=== PATIENT | male | born 1955 | race Hispanic/Latino ===

== ENCOUNTER 2021-11-28 19:28 | Emergency (ER) | payer OTHER ==
--- OUTSIDE RECORDS SUMMARY | 2021-11-28 19:33 | XMS REPORT | Continuity of Care Document ---
:1955 Author Organization [facility] t Address [address] [place] [address] Care Team Providers Name Role Phone Deirdre TANG, Sonya Primary Care Physician Brielle Hernandez Attending Clinician Unavailable KRISTOPHER GOODEN Attending Clinician Unavailable Ximena Bryan RN Attending Clinician Unavailable Moni Melchor Attending Clinician Harmeet SALDAÑA Attending Clinician Harmeet SALDAÑA Admitting Clinician Payers Payer Name Policy Type Policy Number Effective Date Expiration Date Octavio sawant SELF-PAY CI [id number] Problems Condition Condition Condition Status Onset Resolution Last Treating Co mments Source Name Details Category Date Date Treatment Clinician Date Sepsis due Sepsis due Disease Active U nivers to urinary to urinary 5-20 it y of tract tract 00:00: [place] infection infection 00 [facility] Branch Encounter Encounter Disease Active 2019-08 Met hodi for for 2-01 st radiothera radiothera 00:00: Ho spita py py 00 l COVID-19 COVID-19 Disease Active [facility] di virus virus 05-22 st detected detected 00:00: Hospit a 00 l Malignant Malignant Disease Active Met hodi neoplasm neoplasm 9 st of of 00:00: Hospita prostate prostate 00 l Prostate Prostate Disease Active [facility] di cancer cancer 4-15 st 00:00: Hospita 00 l Morbid Morbid Disease Active Univers obesity obesity 2-21 [place] of with body [place] index mass index 00 Me dical of 50 or of 50 or Branch higher higher Total knee Total knee Disease Active U nivers replacemen replacemen 2-20 it y of t status t status 00:00: [place] 00 Medical Branch Type 2 Type 2 Disease Active 2015-08 Univers diabetes diabetes 2-31 ity of mellitus mellitus 00:00: [place] without without 00 Medical complicati complicati Br anch on, on, without without long-term long-term current current use of use of insulin insulin Essential Essential Disease Active 2015-08 Uni vers (primary) (primary) 2 ity of hypertensi hypertensi [place] 00 Medical Branch Allergies, Adverse Reactions, Alerts Allergy Allergy Status Severity Reaction(s) Onset Inactive Treating Comm ents Source Name Type Date Date Clinician Insulin Propensi Active Other (See 2019-08 Met hodi Lispro ty to Comments) 2-15 st adverse 00:00: Hospita reaction 00 l s to drug NO KNOWN Drug Active Univers ALLERGIE Class ity of S [facility] Humalog Adverse Active inc glucose [facility] Social History Social Habit Start Date Stop Date Quantity Comments Source History [facility] Drinks [facility] History [facility] Exposure to Not sure University of SARS-CoV-2 [facility] (event) Branch Alcohol intake 2021-08-02 2021-08-02 Lifetime [facility] 00:00:00 00:00:00 non-drinker Hospital (finding) History [facility] 2020-09-22 2020-09-22 1 [facility] Frequency 00:00:00 00:00:00 Hospita l Tobacco use and 2020-04-12 2020-04-12 Smokeless tobacco [facility] exposure 00:00:00 00:00:00 non-user Hospital Sex Ass[birth year] At [birth year] Univers[facility] of 00:00:00 00:00:00 [facility] Smoking Status Start Date Stop Date Source Never smoked tobacco [facility] Medications Ordered Filled Start Stop Current Ordering Indication Dosage Frequency Signature Comments Components Source Medication Medication Date Date Medication? Clinician (SIG) Name Name leuprolide 2020-08- No [id number] 22.5mg Methodi (LUPRON) 10-03 st depot 22:30: 22:19 Hospita injection 00 :00 l 22.5 mg (RESTRICTED ) leuprolide 2020- No [id number] 22.5mg [facility] (LUPRON) 04-[address] depot 20:30: 20:26 Hospita injection 00 :00 l 22.5 mg (RESTRICTED ) metFORMIN Yes 500mg Take 500 Uni vers (GLUCOPHAGE 5-23 mg by ity of ) 500 mg 18:51: mouth 2 [place] tablet 54 (two) Medical times [place] daily with meals. oxybutynin Yes 5mg Take 5 mg Un levi chloride 5 5-23 by mouth ity o f mg tablet 18:51: daily. [address] tamsulosin Yes Take by Uni vers 0.4 mg 24 5-23 mouth ity of hr capsule 18:51: daily. [address] gabapentin Yes 300mg Take 300 Un levi 100 mg 5-23 mg by ity of capsule 18:51: mouth at [place] [address] bedtime. Medical Branch metFORMIN Yes 500mg Take 500 Uni vers (GLUCOPHAGE 5-23 mg by ity of ) 500 mg 18:51: mouth 2 [place] tablet 54 (two) Medical times [place] daily with meals. oxybutynin Yes 5mg Take 5 mg Un levi chloride 5 5-23 by mouth ity o f mg tablet 18:51: daily. [address] tamsulosin Yes Take by Uni vers 0.4 mg 24 5-23 mouth ity of hr capsule 18:51: daily. [address] gabapentin Yes 300mg Take 300 Un levi 100 mg 5-23 mg by ity of capsule 18:51: mouth at [place] [address] bedtime. Medical Branch furosemide 2020- No [id number] 20mg Take 1 Univers 20 mg 5-14 02-23 tablet by ity of tablet 00:00: 04:59 mouth [place] 00 :00 daily for Medical 30 days. Branch furosemide 2020- No [id number] 20mg Take 1 Univers 20 mg 5-14 02-23 tablet by ity of tablet 00:00: 04:59 mouth [place] 00 :00 daily for Medical 30 days. Branch levoFLOXaci 2020- No [id number] 750mg Take 1 Univers n 750 mg -14 02-05 tablet by ity o f tablet 00:00: 04:59 mouth [place] 00 :00 every 24 Medical (twenty-fo [place] ur) hours for 12 days. levoFLOXaci 2020- No [id number] 750mg Take 1 Univers n 750 mg -14 02-05 tablet by ity o f tablet 00:00: 04:59 mouth [place] 00 :00 every 24 Medical (twenty-fo [place] ur) hours for 12 days. lactulose No 30mL 30 mL, Unive rs (CEPHULAC) 01-13 Oral, ity of solution 30 16:30: 16:05 ONCE, 1 [place] mL 00 :00 dose, [facility] 01/13/21 at Branch 1130, Routine furosemide No 40mg 40 mg, IV U nivers (LASIX) 01-13 Push, ity of injection 16:15: 16:05 ONCE, 1 [place] 40 mg 00 :00 dose, [facility] 01/13/21 at Branch 1115, Routine docusate Yes 100mg 100 mg, Unive rs (COLACE) 01-13 Oral, ity of capsule 100 15:30: DAILY, [place] mg 00 First dose Medical on [facility] 01/13/21 at 1030, Until Discontinu ed, Routine levoFLOXaci Yes 750mg 750 mg, IV Univers n in D5W 01-13 Piggyback, ity o f (LEVAQUIN) 14:30: Q24H ABX, [place] 750 mg/150 00 First dose Med ical mL on [facility] Piggyback 01/13/21 at 750 mg 0930, Until Discontinu ed, 150 mL
R dank for Anti-Infec tive: Empiric Therapy for Suspected Infection< br>Empiric Therapy Site: Blood
D uration of therapy: 7 days tamsulosin Yes .4mg 0.4 mg, Univ ers (FLOMAX) 01-12 Oral, ity of capsule 0.4 14:00: DAILY, [place] mg 00 First dose Medical on Fri Branch 01/12/21 at 0900, Until Discontinu ed, Routine oxybutynin Yes 5mg 5 mg, Univer s chloride 01-12 Oral, ity of (DITROPAN) 14:00: DAILY, [place] tablet 5 mg 00 First dose Me dical on Fri Branch 01/12/21 at 0900, Until Discontinu ed, Routine enoxaparin Yes 40mg 40 mg, Unive rs (LOVENOX) 01-12 Subcutaneo ity of injection 14:00: [place], DAILY, [place] 40 mg 00 First dose Medical on Fri Branch 01/12/21 at 0900, Until Discontinu ed, Routine meropenem No 1g 1 g, IV Univ ers (MERREM) 1 01-12 05-22 Piggyback, it y of g in NaCl 05:30: 13:23 Q8H ABX, Cam as 0.9% (NS) 00 :29 First dose Medi arlette 100 mL on Fri MINI-BAG 01/12/21 at 0030, Until Discontinu ed, 100 mL
Rest ricted use approved by: ADC PROVIDER<b r>Reason for Anti-Infec tive: Documented Infection< br>Documen lynn Infection Site: Urine
D uration of Therapy: 7 days gabapentin Yes 300mg 300 mg, Uni vers (NEURONTIN) 01-12 Oral, QHS, it y of capsule 300 02:00: First dose [place] mg 00 on Jenny Medical 01/11/21 at Branch 2100, Until Discontinu ed, Routine Sliding Yes Subcutaneo Univ ers Scale 01-12 us, TID ity of Insulin - 02:00: MEALS+HS, Cam as Lispro 00 First dose Medical (HumaLOG) + on Fri Branch Fsbg 01/11/21 at Testing 2100, Until Discontinu ed, Routine NaCl 0.9% 2020- No 1000mL at 999 Uni vers (NS) bolus 01-12 05- mL/hr, ity of infusion 02:00: 02:24 1,000 mL, Cam as 1,000 mL 00 :00 [facility] [place] ONCE, 1 dose, [facility] 01/11/21 at 2100, STAT NaCl 0.9% 2020- No 1000mL at 125 Uni vers (NS) IV 01-12- mL/hr, IV ity of infusion 01:00: 15:27 Infusion, Cam as 1,000 mL 00 :57 CONTINUOUS Medic al , Starting Branch [facility] 01/11/21 at 2000, Until 01/13/21 at 1027, Routine ondansetron Yes 4mg 4 mg, Slow Univers (ZOFRAN 01-12 IV Push, ity of (PF)) 00:52: Q6HPRN, [place] injection 4 18 Starting Medi arlette mg [facility] 01/11/21 at 195, Until Discontinu ed, Routine, Nausea and Vomiting (N/V) acetaminoph Yes 650mg 650 mg, Un levi en 01-12 Oral, ity of (TYLENOL) 00:51: Q6HPRN, [place] tablet 650 37 Starting Medic al mg [facility] 01/11/21 at 195, Until Discontinu ed, Routine, Pain (scale 1-3), Temp > 38.5 C ibuprofen 2020- No 600mg 600 mg, Uni vers (IBU) 01-11 Oral, ity of tablet 600 23:45: 22:39 ONCE, 1 Cam as mg 00 :00 dose, [facility] Medical 01/11/21 at Branch 1845, MANUEL meropenem 2020- No 1g 1 g, IV Univ ers (MERREM) 1 01-11 Piggyback, it y of g in NaCl 22:15: 22:28 ONCE, 1 [place] 0.9% (NS) 00 :00 dose, [facility] Medic al 100 mL 01/11/21 at [place] MINI-BAG 1715, 100 mL
Rest ricted use approved by: ADC PROVIDER<b r>Reason for Anti-Infec tive: Documented Infection< br>Documen lynn Infection Site: Urine
D uration of Therapy: Other (see Comments) vancomycin 2020- No 1000mg 1,000 mg, Univers (VANCOCIN) 5-20 05-20 IV ity of 1,000 mg in 22:15: 23:45 Piggyback, [place] NaCl 0.9% 00 :00 ONCE, 1 Medical (NS) 250 mL dose, [facility] VIAL-MATE 01/11/21 at IV 1715, 250 piggyback mL
Reas on for Anti-Infec tive: Documented Infection< br>Documen lynn Infection Site: Urine
D uration of Therapy: Other (see Comments) NaCl 0.9% 2020- No 2267mL at 999 Uni vers (NS) bolus 5-20 05-20 mL/hr, ity of infusion 22:15: 21:27 2,267 mL, Cam as 2,267 mL 00 :00 IV Medical Infusion, Branch ONCE, 1 dose, [facility] 01/11/21 at 1715, STAT NaCl 0.9% 2020- No 1000mL at 999 Uni vers (NS) IV 5-20 05-20 mL/hr, ity of infusion 21:15: 21:25 [place]venou [place] 1,000 mL 00 :00 s, ONCE, 1 Medic al dose, [facility] Branch 01/11/21 at 1615, Routine acetaminoph 2020- No 1000mg 1,000 mg, Univers en - 05-20 Oral, ity of (TYLENOL) 21:15: 20:11 ONCE, 1 [place] tablet 00 :00 dose, [facility] Medical 1,000 mg 01/11/21 at [facility] h 1615, MANUEL tamsulosin Yes .4mg QD Take 0.4 Met hodi (FLOMAX) 5-[address] 0.4 mg 11:39: mouth Hospita capsule 11 nightly. l Takes with a snack gabapentin Yes 300mg QD Take 300 Me thodi (NEURONTIN) 5-[address] 300 mg 11:39: mouth Hospita capsule 11 every l morning. meloxicam Yes 15mg QD Take 15 mg Me thodi (MOBIC) 15 5-[address] mg tablet 11:39: daily. Hospit a 11 l metFORMIN 0 Yes 1000mg QD Take 1,000 Methodi (GLUCOPHAGE 5-[address] ) 1,000 mg 11:39: mouth Hospit a tablet 11 daily with l breakfast. insulin 0 Yes [id number] Inject Me thodi ASPART 5-[id number] (NovoLOG) 11:39: 3D skin 3 Hospit a 100 unit/mL 11 (three) l injection times a day before meals. Uses a sliding scale lisinopriL Yes 40mg Q24H Take 40 mg M ethodi (PRINIVIL) 5-[address] 40 mg 11:39: daily as Hospita tablet 11 needed l (patient states has never been given parameters . Takes with SBP greater than 130 and DBP 90 or higher). Depends on his BP in the morning omeprazole Yes 20mg Q24H Take 20 mg M ethodi (PriLOSEC) 5-[address] 20 MG 11:39: daily as Hospita capsule 11 needed. l aspirin 0 Yes 81mg Q24H Take 81 mg Meth lucrecia (ECOTRIN) 5-[address] 81 MG 11:39: daily as Hospita enteric 11 needed. l coated tablet insulin Yes 100 units Metho di GLARGINE 5-[address] (Lantus 11:39: us Once a Hospi ta Solostar 11 day for 90 l U-100 Insulin) 100 unit/mL injection (pen) atorvastati Yes 1 tablet Me thodi n (LIPITOR) 5-[address] 20 mg 11:39: Once a day Hospit a tablet 11 for 90 l gabapentin 0 Yes 1{capsu 1 capsule. Methodi (NEURONTIN) 5-20 le} st 300 mg 11:39: Hospita capsule 11 l lisinopriL 0 Yes 1 tablet Met hodi (PRINIVIL) 5-[address] 40 mg 11:39: Once a day Hospit a tablet 11 for 30 l meloxicam Yes 1 tablet Meth lucrecia (Mobic) 15 5-[address] mg tablet 11:39: Once a day Ho spita 11 for 30 l metFORMIN Yes 1 tablet Meth lucrecia (GLUCOPHAGE 5-[address] ) 1,000 mg 11:39: meal Hospita tablet 11 Orally l Once a day for 30 tamsulosin Yes 1{capsu 1 capsule. Methodi (FLOMAX) 5-20 le} st 0.4 mg 11:39: Hospita capsule 11 l tamsulosin 2020- No .4mg QD Take 1 Meth lucrecia (FLOMAX) 5-20 08-[address] 0.4 mg 00:00: 04:59 (0.4 mg Hospita capsule 00 :00 total) by l mouth daily for 90 days. finasteride 2019-08 No 5mg QD Take 1 Met hodi (Proscar) 5 2-24 03-25 tablet (5 st mg tablet 00:00: 04:59 mg total) Ho spita 00 :00 by mouth l daily for 90 days. oxybutynin 2019-08 No 5mg QD Take 1 Meth lucrecia XL 2-24 02-23 tablet (5 st (Ditropan 00:00: 05:59 mg total) Ho spita XL) 5 MG 24 00 :00 by mouth l hr tablet daily for 60 days. Firmagon Yes RECONSTITU Met hodi kit w 8-[address] diluent 00:00: VIAL WITH Hospi ta syringe 120 00 DILUENT l mg chemo AND injection PHYSICIAN IS TO INJECT 240 MG SUBCUTANEO USLY FOR 1 DOSE LOADING DOSE degarelix Yes [id number] 240mg Me thodi (FIRMAGON) 6-18 st chemo 20:15: Hospita injection 00 l 240 mg insulin Yes 25 units Method i ASPART 5-[address] (NovoLOG) 00:00: Subcutaneo Ho spita 100 unit/mL 00 us TID l (3 mL) with meals insulin pen for 90 days Insulin Insulin Yes [place] [address] Aspart Aspart 5-28 [place] sub q [facility] - FlexPen FlexPen 00:00: [facility] insulin Yes 25 units Method i lispro 2-[address] (HumaLOG 00:00: us TID for Hos shefali KwikPen 00 90 days l Insulin) 200 unit/mL (3 mL) insulin pen HYDROCHLORO No TAKE ONE U nivers THIAZIDE 6- 05-20 CAPSULE BY ity of 12.5 mg 00:00: 00:00 MOUTH ONCE Cam as capsule 00 :00 DAILY Medical Branch lisinopril- 2016-08 Yes [id number] 1{tbl} Take 1 Univers hydrochloro 2-29 tablet by ity of thiazide 00:00: mouth [place] 10-12.5 mg 00 daily. Medical per tablet Branch lisinopril- 2016-08 Yes [id number] 1{tbl} Take 1 Univers hydrochloro 2-29 tablet by ity of thiazide 00:00: mouth [place] 10-12.5 mg 00 daily. Medical per tablet Branch acetaminoph 2020- No 1{tbl} Take 1 U nivers en-codeine 3 05-20 tablet by ity of (TYLENOL-CO 00:00: 00:00 [place] DEINE #3) 00 :00 every 4 Medical 300-30 mg (four) Branch tablet hours as needed for Pain (scale 4-6) or Pain (scale 7-10). Immunizations Ordered Filled Immunization Date Status Comments [facility] e Immunization Name Name FLUZONE HIGH DOSE FLUZONE HIGH DOSE 2019-06-28 Completed [facility] - OVER 65 OVER 65 00:00:00 [facility] Vital Signs Vital Name Observation Time Observation Value Comments Source Systolic blood 2021-01-14 16:55:00 143 mm[Hg] Univer sity of pressure [facility] Diastolic blood 2021-01-14 16:55:00 77 mm[Hg] Unive rsity of pressure [facility] Heart rate 2021-01-14 16:55:00 95 /min [facility] Body temperature 2021-01-14 16:55:00 36.17 Mago [facility] 2021-01-14 16:55:00 20 /min [facility] Oxygen saturation in 2021-01-14 16:55:00 96 /min [facility] Arterial blood by [facility] Pulse oximetry Branch Body height 2021-01-12 01:15:00 170.2 cm [facility] Body weight 2021-01-11 20:00:00 108.863 kg [facility] BMI 2021-01-11 20:00:00 37.59 kg/m2 [facility] Procedures Procedure Date / Time Performing Clinician Source Performed PROSTATE SPECIFIC ANTIGEN 2021-07-26 20:41:00 [facility] [id number] 2021-04-12 17:28:00 [facility] PROSTATE SPECIFIC ANTIGEN 2021-04-04 15:29:00 [facility] POCT GLUCOSE (AUTOMATED) 2021-01-14 16:55:00 Rnoak Ga [facility] POCT GLUCOSE (AUTOMATED) 2021-01-14 12:35:00 Ronak Ga [facility] COMP. METABOLIC PANEL 2021-01-14 07:43:00 Ronak Ga [facility] ([id number]) [facility] CBC WITH DIFF 2021-01-14 07:43:00 Ronak Ga o f [facility] N-TERMINAL PRO-BNP 2021-01-14 07:43:00 Mnoi Lenz [facility] POCT GLUCOSE (AUTOMATED) 2021-01-14 01:41:00 Ronak Ga [facility] POCT GLUCOSE (AUTOMATED) 2021-01-13 21:54:00 Ronak Ga [facility] POCT GLUCOSE (AUTOMATED) 2021-01-13 16:42:00 Ronak Ga [facility] POCT GLUCOSE (AUTOMATED) 2021-01-13 13:09:00 Ronak Ga [facility] BLOOD CULTURE SCREEN 2021-01-13 09:49:00 Ronak Ga [facility] BLOOD CULTURE SCREEN 2021-01-13 09:48:00 Ronak Ga [facility] COMP. METABOLIC PANEL 2021-01-13 09:46:00 Ronak Ga [facility] ([id number]) [facility] CBC WITH DIFF 2021-01-13 09:46:00 Abdullah, Ronak [facility] POCT GLUCOSE (AUTOMATED) 2021-01-13 02:23:00 Ronak Ga [facility] POCT GLUCOSE (AUTOMATED) 2021-01-12 21:02:00 Ronak Ga [facility] POCT GLUCOSE (AUTOMATED) 2021-01-12 16:15:00 Ronak Ga [facility] POCT GLUCOSE (AUTOMATED) 2021-01-12 12:38:00 Ronak Ga [facility] CBC WITH DIFF 2021-01-12 08:33:[address] [facility] POCT GLUCOSE (AUTOMATED) 2021-01-12 02:28:00 Ronak Ga [facility] CT ABDOMEN PELVIS WO 2021-01-11 22:01:09 Moni Tavarez [facility] Branch HB ECG ROUTINE & RHYTHM 2021-01-11 20:28:37 Singer [facility] XR CHEST 1 VW 2021-01-11 20:21:38 Singer [facility] COVID-19 (ID NOW RAPID 2021-01-11 20:18:00 Singer Fahad [facility] TESTING) Medical Branch LAB ONLY COVID 2021-01-11 20:18:00 Singer [facility] BLOOD CULTURE SCREEN 2021-01-11 20:17:00 Fahad Johnson [facility] COMP. METABOLIC PANEL 2021-01-11 20:17:00 Fahad Johnson [facility] ([id number]) Medical Branch CBC WITH DIFF 2021-01-11 20:17:00 Singer [facility] URINALYSIS 2021-01-11 20:17:00 Singer [facility] URINE CULTURE 2021-01-11 20:17:00 Singer [facility] BLOOD CULTURE WORKUP 2021-01-11 20:17:00 Singer Fahad [facility] BLOOD CULTURE WORKUP 2021-01-11 20:17:00 Fahad Johnson [facility] GRAM NEGATIVE BLOOD 2021-01-11 20:17:00 [facility] PROBE-AEROBIC LACTIC ACID WHOLE BLOOD 2021-01-11 20:16:00 Fahad Johnson [facility] PROSTATE SPECIFIC ANTIGEN 2020-12-29 13:44:00 Kristopher Gooden [facility] Plan of Care Planned Activity Planned Date Details Comments Source Future Scheduled 2021-08-09 Hepatitis C screening [facility] Test 09:56:37 (procedure) [code = 729128700] Future Scheduled 2021-08-09 COLONOSCOPY SCREENING [facility] Test 09:56:37 [code = COLONOSCOPY SCREENING] Future Scheduled 2021-08-09 [facility]IN[facility] (#[facility] 09:56:37 [code = SHINGLES VACCINES (#1)] Future Scheduled 2021-08-09 65+ PNEUMOCOCCAL [facility] Test 09:56:37 VACCINE (1 of 1 - PPSV23) [code = 65+ PNEUMOCOCCAL VACCINE (1 of 1 - PPSV23)] Future Scheduled 2021-08-09 INFLUENZA VACCINE [facility] Hospital Test 09:56:37 [code = INFLUENZA VACCINE] Future Scheduled 2021-08-09 COVID-19 VACCINE (3 - [facility] Test 09:56:37 Booster for Moderna series) [code = COVID-19 VACCINE (3 - Booster for Moderna series)] Encounters Start End Encounter Admission Attending Care Care Encounter Source Date/Time Date/Time Type Type Clinicians Facility Department ID 2021-09-25 Outpatient IBNS IBNS [id number] Jaylan 12:21:50 [id number] Florian 2021-09-19 Outpatient Anson [facility] [id number] 13:27:53 Bri[place] [id number] [facility] 2021-09-19 Outpatient [place], [facility] [id number] 13:06:33 Bri[place] [id number] [facility] 2021-09-19 Outpatient [place], [facility] [id number] 12:49:33 Bri[place] [address] [facility] 2021-09-19 Outpatient David, STLMLC STLMLC [id number] 12:24:51 Bri[place] 30383 [facility] 2021-09-19 Outpatient David, STLMLC STLMLC [id number] 12:24:21 Brielle 71494 [facility] 2021-09-19 Outpatient David, STMARIOLALC STLC [id number] 11:23:38 Bri[place] 28130 [facility] 2021-09-19 Outpatient David, STLMLC STLMLC [id number] 11:11:16 Bri[place] [id number] [facility] 2021-09-19 Outpatient David, STLMLC STLC [id number] 11:09:25 Bri[place] 956[address] [facility] 2021-09-19 Outpatient David, STLMLC STLC [id number] 11:08:42 [place] [id number] [facility] 2021-09-19 Outpatient David, STLMLC STLC [id number] 11:08:07 [place] 74839 [facility] 2021-09-19 Outpatient David, STLMLC STLC [id number] 11:07:57 [place] [id number] [facility] 2021-09-19 Outpatient David, STLMLC STLC [id number] 11:07:34 Bri[place] 62961 [facility] 2021-09-19 Outpatient David, STLMLC STLC [id number] 11:06:06 [place] [id number] [facility] 2021-06-24 Emergency [facility] [id number] Univers 20:21:58 [facility] 2021-11-23 2021-11-23 ambulatory STLC [facility] [id number] [facility] 00[facility]00 [facility] 2021-11-15 2021-11-15 Outpatient SATKUNASIVA [facility] [id number] [place] 00:00:00 00:00:00 M, KRISTOPHER [address] 2021-10-22 2021-10-22 ambulatory STLMLC STLMLC [id number] [facility]00 [facility] 2021-10-16 2021-10-16 ambulatory STLMLC STLMLC [id number] [facility]00 [facility] 2021-10-16 2021-10-16 ambulatory STLMLC STLMLC [id number] [facility]00 [facility] 2021-10-16 2021-10-16 ambulatory STLMLC STLMLC [id number] [facility]00 [facility] 2021-08-02 2021-08-02 Office Satkunasiva 1.2.840.1 [id number] [facility]i 15:41:36 16:23:04 Visit m, Kristopher [id number] 3.430.2.7 Hospit a .3.250199 l .8 2021-08-02 2021-08-02 Travel 1.2.840.1 [id number] [facility] 00:00:00 00:00:[id number] 3.430.2.7 0.2.7.3.698 Ho spita .3.101464 084.8 l .8 2021-07-16 2021-07-16 ambulatory STLMLC STLMLC [id number] [facility]00 [facility] 2021-07-16 2021-07-16 Telephone Satkunasiva 1.2.840.1 [id number] [facility]i 00:00:00 00:00:00 m, Kristopher 75103.1.[address] 3.430.2.7 Hospit a .3.246168 l .8 2021-04-23 2021-04-23 Outpatient [facility] [id number] [facility] 00:[facility]:00 [facility] ent [facility] 2021-04-12 2021-04-19 Office Satkunasiva 1.2.840.1 [id number] Methodi 11:38:53 15:20:05 Visit m, Kristopher [id number] 3.430.2.7 Hospit a .3.293375 l .8 2021-04-13 2021-04-19 Clinical Satkunasiva 1.2.840.1 [id number] [facility]i 13:12:48 12:05:53 Support m, Kristopher 55922.1.[address] 3.430.2.7 Hospit a .3.742304 l .8 2021-04-19 2021-04-19 Outpatient [facility] [id number] [facility] 00:[facility]:00 00:00:00 [facility] ent [facility] 2021-04-18 2021-04-18 Outpatient [facility] [id number] [facility] 00:[facility]:00 [facility] ent [facility] 2021-04-12 2021-04-12 Travel 1.2.840.1 [id number] [id number] Methodi 00:00:00 00:00:[address] 3.430.2.7 0.2.7.3.698 Ho spita .3.016607 084.8 l .8 2021-01-11 2021-01-18 Office [facility] 1.2.840.1 [id number] Methodi 11:00:54 13:58:17 Visit m, Kristopher 09528.1.[address] 3.430.2.7 Hospit a .3.636777 l .8 2021-01-16 2021-01-16 Transition Feliberto Bryan 1.2.840.114 [id number] [facility] 00:00:00 00:00:00 of Vanessa Keenan 350.1.13.10 [place] [id number] [facility] [address] 2021-01-16 2021-01-16 Outpatient [facility] [id number] [facility] 2021-01-15 2021-01-15 Outpatient [facility] [id number] [facility] 2021-01-11 2021-01-14 [facility] Moni Tavarez [facility] 1.2.840.11 [id number] [facility] 14:58:00 12:45:00 Encounter Ronak [place] 350.1.13.10 [place] [id number] [facility] [address] 2021-01-12 2021-01-12 Telephone [facility] 1.2.840.1 [id number] Methodi 00:00:00 00:00:00 m, Kristopher 76389.1.[address] 3.430.2.7 Hospit a .3.792983 l .8 2021-01-11 2021-01-11 Travel 1.2.840.1 1.2.628.461 [id number] Methodi 00:00:00 00:00:[address] 3.430.2.7 0.2.7.3.698 Ho spita .3.536352 084.8 l .8 2021-01-05 2021-01-05 Telephone [facility] 1.2.840.1 [id number] Methodi 00:00:00 00:00:00 m, Kristopher 13430.1.[address] 3.430.2.7 Hospit a .3.674092 l .8 2021-01-04 2021-01-04 Office [facility] 1.2.840.1 [id number] Methodi 13:45:00 14:00:00 Visit m, Kristopher 09405.1.[address] 3.430.2.7 Hospit a .3.106170 l .8 2020-12-22 2020-12-22 Telephone Jonatan 1.2.840.1 [id number] Methodi 00:00:00 00:00:00 m, Kristopher 21366.1.[address] 3.430.2.7 Hospit a .3.049571 l .8 2020-11-01 2020-11-01 Outpatient [facility] [id number] [facility] 2020-09-18 2020-09-18 Outpatient [facility] [id number] [facility] 2020-08-07 2020-08-07 Outpatient [facility] [id number] [facility] 2020-05-29 2020-05-29 Outpatient [facility] [id number] [facility] 2020-03-29 2020-03-29 [facility] [id number] 16:24:00 16:24:00 t [facility] Medicine l Medicine Outpati ent Clinics 2020-03-06 2020-03-06 [facility] [id number] 14:40:00 14:40:00 t [facility] Medicine l Medicine Outpati ent Clinics 2020-02-28 2020-02-28 [facility] [id number] 14:30:00 14:30:00 t Specialty/U [facility] - Specialty rology [facility] a /Urology Clinic l Clinic Outpati ent Clinics 2020-01-20 2020-01-20 [facility] [id number] 16:20:00 16:20:00 t [facility] Medicine l Medicine Outpati ent Clinics 2019-11-23 2019-11-23 [facility] [id number] 10:00:00 10:00:00 t Specialty/[facility] [place] [facility] - Specialty rology [facility] /Urology Clinic l Clinic Outpati ent Clinics 2019-11-19 2019-11-19 [facility] [id number] 13:22:00 13:22:00 t Specialty/[facility] [employer] [facility] - Specialty rology [facility] /Urology Clinic l Clinic Outpati ent Clinics 2019-11-16 2019-11-16 [facility] [id number] 14:15:00 14:15:00 t Specialty/[facility] [employer] - Specialty rology [facility] /Urology Clinic l Clinic Outpati ent Clinics 2019-11-08 2019-11-08 [facility] [id number] 16:45:00 16:45:00 t Specialty/U [place] kes - Specialty rology Mem[facility] a /Urology Clinic l Clinic Outpati ent Clinics 2019-10-27 2019-10-27 [facility] [id number] 16:17:00 16:17:00 t Specialty/[facility] [place] [facility] - Specialty rology [facility] /Urology Clinic l Clinic Outpati ent Clinics 2019-10-26 2019-10-26 [facility] [id number] 11:35:00 11:35:00 t Specialty/[facility] [employer] - Specialty rology [facility] /Urology Clinic l Clinic Outpati ent Clinics 2019-10-25 2019-10-25 [facility] [id number] 16:40:00 16:40:00 t [facility] Medicine Outpati ent Clinics 2019-10-19 2019-10-19 [facility] [id number] 14:30:00 14:30:00 t Specialty/[facility] [place] - Specialty rology Mem[facility] a /Urology Clinic l Clinic Outpati ent Clinics 2019-10-13 2019-10-13 [facility] [id number] 17:56:00 17:56:00 t [facility] 2019-10-11 2019-10-11 Outpatient Lorena Coon [id number] 09:00:00 09:00:00 [facility] 2019-06-28 2019-06-28 Outpatient Lorena Coon [id number] 15:20:00 15:20:00 [facility] Results Test Description Test Time Test Comments Results Result Comments Source Prostate specific antigen 2021-07-27 15:10:00 Test Item Value Reference Range Interpretation Comme nts PSA (test code = <0.1 0.0-4.0 Denys ECLIA methodology.According 2857-1) to the [place] [employer], Se rum PSA shoulddecrease and remain at undetectable le vels after radicalprostate ctomy. The AUA defines biochem ical recurrence as an initialPSA v alue 0.2 ng/mL or greater followe d by a subsequent confirmatoryPSA value 0.2 ng/mL or greater.Valu es obtained with different assay methods or kits cannot be usedi nterchangeably. Results cannot be interpreted as absolute eviden ceof the presence or absence of m alignant disease. JOSE (test code = Performed at: ) [facility] [id number] Director: Jorge Irwin MD, Phone: [phone] [facility] BLADDER SCAN/[id number] 17:28:00 Test Item Value Reference Range Interpretation Comments PVR volume (test code = 5766) [facility] GLUCOSE (AUTOMATED)2021-01-14 17:21:37 Test Item Value Reference Range Interpretation Comments POCT GLU (test code = 8695483614) 168 mg/dL 70-110 H Lab Interpretation (test code = Abnormal 36215-7) [id number] 15:30:48 Test Item Value Reference Range Interpretation Comments NT-proBNP (test code 1120 pg/mL See_Comment H [Autom ated = 6642307648) message] The system which generated this result transmitted reference range : <=125. The reference range was not used to interpret this result as normal/abnormal . JOSE (test code = JOSE) Biotin has been reported to cause a negative bias, interpret results relative to patient's use of biotin. Lab Interpretation Abnormal (test code = 44227-5) [facility] [id number] 13:47:13 Test Item Value Reference Range Interpretation Comments Blood Culture Escherichia coli Hydro mor phologically Workup (test consistent with code = 600-7) organism above For susceptibility results, refer to culture # - [id number] Gram stain Isolated from Gram negative bacilli (test code = aerobic/anaerobic from anaer obic and 664-3) bottles Gram aerobic bottles . negative bacilli [facility]2021-01-14 13:02:24 Test Item Value Reference Range Interpretation Comments POCT GLU (test code = 1102134176) 140 mg/dL 70-110 H Lab Interpretation (test code = Abnormal 29754-1) [facility] [id number] 08:58:31 Test Item Value Reference Range Interpretation Comments WBC (test code = See_Comment [Automated 6690-2) message] The sy stem which generated this result transmitted reference range : 4.20 - 10.70 10*3/?L. The reference range was not used to interpret this result as normal/abnormal . RBC (test code = See_Comment L [Automated 789-8) message] The sy stem which generated this result transmitted reference range : 4.26 - 5.52 10*6/?L. The reference range was not used to interpret this result as normal/abnormal . HGB (test code = 10.4 g/dL 12.2-16.4 L 718-7) HCT (test code = 30.8 % 38.4-49.3 L 4544-3) MCV (test code = 89.5 fL 81.7-95.6 787-2) MCH (test code = 30.2 pg 26.1-32.7 785-6) MCHC (test code = 33.8 g/dL 31.2-35.0 786-4) RDW-SD (test code = 45.7 fL 38.5-51.6 92764-3) RDW-CV (test code = 14.3 % 12.1-15.4 788-0) PLT (test code = See_Comment L [Automated 777-3) message] The sy stem which generated this result transmitted reference range : 150 - 328 10*3/ ?L. The reference r sarina was not used to interpret this result as normal/abnormal . MPV (test code = 9.8 fL 9.8-13.0 04158-7) NRBC/100 WBC (test See_Comment [Automat ed code = 9620806496) message] The system which generated this result transmitted reference range : 0.0 - 10.0 /100 WBCs. The refer ence range was not u sed to interpret th is result as normal/abnormal . NRBC x10^3 (test code <0.01 See_Comment [Auto mated = 6157952229) message] The s ystem which generated this result transmitted reference range : 10*3/?L. The reference range was not used to interpret this result as normal/abnormal . GRAN MAT (NEUT) % 77.3 % (test code = 770-8) IMM GRAN % (test code 1.40 % = 0041271789) LYMPH % (test code = 8.4 % 736-9) MONO % (test code = 9.6 % 5905-5) EOS % (test code = 2.5 % 713-8) BASO % (test code = 0.8 % 706-2) GRAN MAT x10^3(ANC) 6.99 10*3/uL 1.99-6.95 H (test code = 4694719051) IMM GRAN x10^3 (test 0.13 10*3/uL 0.00-0.06 H code = 7805067188) LYMPH x10^3 (test code 0.76 10*3/uL 1.09-3.23 L = 731-0) MONO x10^3 (test code 0.87 10*3/uL 0.36-1.02 = 742-7) EOS x10^3 (test code = 0.23 10*3/uL 0.06-0.53 711-2) BASO x10^3 (test code 0.07 10*3/uL 0.01-0.09 = 704-7) POLYCHROMASIA (test 2+ See_Comment [Automa lynn code = 69173-4) message] The system which generated this result transmitted reference range : 2+. The referen ce range was not u sed to interpret th is result as normal/abnormal . ROSSYCHRISTINE (test code = Present See_Comment A [Auto mated 7797-4) message] The sy stem which generated this result transmitted reference range : (none). The reference range was not used to interpret this result as normal/abnormal . BANDS (test code = Increased A 7494014693) DOHLE BODIES (test Present A code = 7792-5) Lab Interpretation Abnormal (test code = 72073-0) [facility]. METABOLIC PANEL (75938)2021-01-14 08:28:49 Test Item Value Reference Range Interpretation Comments NA (test code = 137 mmol/L 135-145 3123970684) K (test code = 3.9 mmol/L 3.5-5.0 4811680971) CL (test code = 107 mmol/L 98-108 5134824147) CO2 TOTAL (test code = 23 mmol/L 23-31 0756303455) AGAP (test code = 2-16 7459717633) BUN (test code = 19 mg/dL 7-23 8619463506) GLUCOSE (test code = 131 mg/dL 70-110 H 7500777151) CREATININE (test code = 1.04 mg/dL 0.60-1.25 2490547073) TOTAL BILI (test code = 0.8 mg/dL 0.1-1.3 8294631278) CALCIUM (test code = 8.8 mg/dL 8.6-10.6 2696778465) T PROTEIN (test code = 5.8 g/dL 6.3-8.2 L 9395014793) ALBUMIN (test code = 2.9 g/dL 3.5-5.0 L 7214922896) ALK PHOS (test code = 86 U/L 34-122 5908063776) ALTv (test code = 40 U/L 5-50 1742-6) AST(SGOT) (test code = 57 U/L 13-40 H 8740480027) eGFR (test code = mL/min/1.73m2 8565695647) JOSE (test code = JOSE) Association of Glomerular Filtration Rate (GFR) and Staging of Kidney Disease* + --+ --+ ------+| GFR (mL/min/1.73 m2) ?| With Kidney Damage ?| ?Without Kidney Damage+ --------+ --------+ +| ?>90 ?| ?Stage one ?| ? Normal ?+ ---+ ---+ -------+| ?60-89 ?| ?Stage two ?| ? Decreased GFR ? + --+ --+ ------+| ?30-59 ?| ?Stage three ?| ? Stage three ? + --+ --+ ------+| ?15-29 ?| ?Stage four ? | ? Stage four ?+ ---+ ---+ -------+| ?<15 (or dialysis) ? ?| ?Stage five ? | ? Stage five ?+ ---+ ---+ -------+ *Each stage assumes the associated GFR level has been in effect for at least three months. ?Stages 1 to 5, with or without kidney disease, indicate chronic kidney disease. Notes: Determination of stages one and two (with eGFR >59mL/min/1.73 m2) requires estimation of kidney damage for at least three months as defined by structural or functional abnormalities of the kidney, manifested by either:Pathological abnormalities or Markers of kidney damage (including abnormalities in the composition of the blood or urine or abnormalities in imaging tests). Lab Interpretation Abnormal (test code = 36543-3) [facility] GLUCOSE (AUTOMATED)2021-01-14 01:46:47 Test Item Value Reference Range Interpretation Comments POCT GLU (test code = 5737370590) 202 mg/dL 70-110 H Lab Interpretation (test code = Abnormal 06839-2) [facility] GLUCOSE (AUTOMATED)2021-01-13 22:09:58 Test Item Value Reference Range Interpretation Comments POCT GLU (test code = 8367658744) 149 mg/dL 70-110 H Lab Interpretation (test code = Abnormal 82994-7) [facility] GLUCOSE (AUTOMATED)2021-01-13 18:37:46 Test Item Value Reference Range Interpretation Comments POCT GLU (test code = 4891624104) 208 mg/dL 70-110 H Lab Interpretation (test code = Abnormal 23127-7) [facility] GLUCOSE (AUTOMATED)2021-01-13 13:56:35 Test Item Value Reference Range Interpretation Comments POCT GLU (test code = 0998514082) 115 mg/dL 70-110 H Lab Interpretation (test code = Abnormal 14013-7) [facility] WITH [id number] 13:45:25 Test Item Value Reference Range Interpretation Comments WBC (test code = See_Comment H [Automated 6690-2) message] The sy stem which generated this result transmitted reference range : 4.20 - 10.70 10*3/?L. The reference range was not used to interpret this result as normal/abnormal . RBC (test code = See_Comment L [Automated 789-8) message] The sy stem which generated this result transmitted reference range : 4.26 - 5.52 10*6/?L. The reference range was not used to interpret this result as normal/abnormal . HGB (test code = 9.9 g/dL 12.2-16.4 L 718-7) HCT (test code = 29.8 % 38.4-49.3 L 4544-3) MCV (test code = 91.7 fL 81.7-95.6 787-2) MCH (test code = 30.5 pg 26.1-32.7 785-6) MCHC (test code = 33.2 g/dL 31.2-35.0 786-4) RDW-SD (test code = 48.8 fL 38.5-51.6 89356-5) RDW-CV (test code = 14.6 % 12.1-15.4 788-0) PLT (test code = See_Comment L [Automated 777-3) message] The sy stem which generated this result transmitted reference range : 150 - 328 10*3/ ?L. The reference r sarina was not used to interpret this result as normal/abnormal . MPV (test code = 10.6 fL 9.8-13.0 75005-7) NRBC/100 WBC (test See_Comment [Automat ed code = 1164252350) message] The system which generated this result transmitted reference range : 0.0 - 10.0 /100 WBCs. The refer ence range was not u sed to interpret th is result as normal/abnormal . NRBC x10^3 (test code <0.01 See_Comment [Auto mated = 6590851942) message] The s ystem which generated this result transmitted reference range : 10*3/?L. The reference range was not used to interpret this result as normal/abnormal . GRAN MAT (NEUT) % 80.1 % (test code = 770-8) IMM GRAN % (test code 6.70 % = 7437790342) LYMPH % (test code = 5.6 % 736-9) MONO % (test code = 6.1 % 5905-5) EOS % (test code = 1.0 % 713-8) BASO % (test code = 0.5 % 706-2) GRAN MAT x10^3(ANC) 9.23 10*3/uL 1.99-6.95 H (test code = 7965960541) IMM GRAN x10^3 (test 0.77 10*3/uL 0.00-0.06 H code = 9759972413) LYMPH x10^3 (test code 0.65 10*3/uL 1.09-3.23 L = 731-0) MONO x10^3 (test code 0.70 10*3/uL 0.36-1.02 = 742-7) EOS x10^3 (test code = 0.11 10*3/uL 0.06-0.53 711-2) BASO x10^3 (test code 0.06 10*3/uL 0.01-0.09 = 704-7) BANDS (test code = Increased A 4813597143) Lab Interpretation Abnormal (test code = 64699-9) [facility]. METABOLIC PANEL (26469)2021-01-13 12:44:36 Test Item Value Reference Range Interpretation Comments NA (test code = 138 mmol/L 135-145 6652258763) K (test code = 4.0 mmol/L 3.5-5.0 3166868160) CL (test code = 111 mmol/L 98-108 H 1631843759) CO2 TOTAL (test code = 22 mmol/L 23-31 L 2837755708) AGAP (test code = 2-16 2206611823) BUN (test code = 20 mg/dL 7-23 3022943126) GLUCOSE (test code = 119 mg/dL 70-110 H 2200907260) CREATININE (test code = 1.04 mg/dL 0.60-1.25 5814681609) TOTAL BILI (test code = 0.8 mg/dL 0.1-1.6 8349061401) CALCIUM (test code = 8.3 mg/dL 8.6-10.6 L 1678365548) T PROTEIN (test code = 5.4 g/dL 6.3-8.2 L 6609615782) ALBUMIN (test code = 2.7 g/dL 3.5-5.0 L 3850790745) ALK PHOS (test code = 83 U/L 34-122 4831488411) ALTv (test code = 42 U/L 5-50 1742-6) AST(SGOT) (test code = 67 U/L 13-40 H 9536231343) eGFR (test code = mL/min/1.73m2 3502404113) JOSE (test code = JOSE) Association of Glomerular Filtration Rate (GFR) and Staging of Kidney Disease* + --+ --+ ------+| GFR (mL/min/1.73 m2) ?| With Kidney Damage ?| ?Without Kidney Damage+ --------+ --------+ +| ?>90 ?| ?Stage one ?| ? Normal ?+ ---+ ---+ -------+| ?60-89 ?| ?Stage two ?| ? Decreased GFR ? + --+ --+ ------+| ?30-59 ?| ?Stage three ?| ? Stage three ? + --+ --+ ------+| ?15-29 ?| ?Stage four ? | ? Stage four ?+ ---+ ---+ -------+| ?<15 (or dialysis) ? ?| ?Stage five ? | ? Stage five ?+ ---+ ---+ -------+ *Each stage assumes the associated GFR level has been in effect for at least three months. ?Stages 1 to 5, with or without kidney disease, indicate chronic kidney disease. Notes: Determination of stages one and two (with eGFR >59mL/min/1.73 m2) requires estimation of kidney damage for at least three months as defined by structural or functional abnormalities of the kidney, manifested by either:Pathological abnormalities or Markers of kidney damage (including abnormalities in the composition of the blood or urine or abnormalities in imaging tests). Lab Interpretation Abnormal (test code = 13285-0) [facility] 02:26:24 Test Item Value Reference Range Interpretation Comments POCT GLU (test code = 8204991950) 141 mg/dL 70-110 H Lab Interpretation (test code = Abnormal 46236-1) [facility] COVID [id number] 23:29:58COVID DMT InterpretationInterpretation/Recommendations: Molecular NAAT Tests for Active Infection with the SARS-CoV-2 Virus: The patient has currently tested negative for the SARS-CoV-2 virus that causes COVID-19 illness. This most likely indicates that the patient does not have an active infection with the SARS-CoV-2 virus. However, infection is not completely ruled out as the false negative rate for molecular NAAT testing using a nasopharyngeal sample can be up to 30%, mostly dependent on the timing of sample collection in relation to illness onset and any deficiencies in sampling techniques. If the patient has symptoms concerning for COVID-19 illness, a repeat NAAT test (PCR, Rapid ID Now, etc.) should be performed, at which time the SARS-CoV-2 virus - if present - may have reached a detectable viral load (usually peaking by the end of the first week of symptoms). Tests for IgM and/or IgGAntibodies to the SARS-CoV-2 Virus: If the patient develops COVID-19 illness in the future, testingfor IgM and IgG antibodies approximately 3 weeks after illness onset will likely indicate if the patient has produced antibodies to the SARS-CoV-2 virus. However, some patients may take longer to develop detectable antibodies, while some patients who were infected with SARS-CoV-2 may never develop antibodies. While antibodies to SARS-CoV-2 may provide some degree of immunity, at this time the strength and duration of the antibody response is unknown. ? ? Interpretation Result Comments:These interpretation comments are basedupon all COVID-19 testing the patient has had at [facility], including molecular NAAT testing (more commonly known as PCR testing and Rapid ID Now testing) and antibody testing. It does not take into accountany testing that a patient has had outside of the [facility] medical record. [facility] LABORATORY SERVICESCOVID [id number]-0 Rapid ID NOW (no units) ? ? Date ? Value ? 01/11/2021 ? Not Detected ? [facility]12 21:11:00 Test Item Value Reference Range Interpretation Comments POCT GLU (test code = 2769856262) 165 mg/dL 70-110 H Lab Interpretation (test code = Abnormal 23825-7) [facility] [id number] 20:29:44 Test Item Value Reference Range Interpretation Comments Blood Culture-Aerobic Culture positive. No growth AA P revious (test code = 77920-7) See Blood prelim inary Culture Workup verified resu lt for additional was Culture I n information. Progress on 01/11/2021 at 02 CDT Blood Culture positive. No growth AA Previous Culture-Anaerobic See Blood preliminar y (test code = 40712-5) Culture Workup veri fied result for additional was Culture I n information. Progress on 01/11/2021 at 02 CDT Lab Interpretation Abnormal (test code = 63867-9) [facility] [id number] 20:29:39 Test Item Value Reference Range Interpretation Comments Blood Culture-Aerobic Culture positive. No growth AA P revious (test code = 00290-1) See Blood prelim inary Culture Workup verified resu lt for additional was Culture I n information. Progress on 01/11/2021 at 02 CDT Blood Culture positive. No growth AA Previous Culture-Anaerobic See Blood preliminar y (test code = 74858-2) Culture Workup veri fied result for additional was Culture I n information. Progress on 01/11/2021 at 02 CDT Lab Interpretation Abnormal (test code = 88784-2) [facility] DNA [id number] 18:44:06 Test Item Value Reference Range Interpretation Comments Escherichia coli (test Positive Negative, See A code = 73394-5) Comment/Narrative CTX-M (test code = Positive Negative, See A 55340-1) Comment/Narrative JOSE (test code = JOSE) Gram-negative bacteria with extended-spectrum beta-lactamase (ESBL) production detected by DNA probe. Preferred therapy is ertapenem. ?Infectious Diseases consultationis recommended. Please contact the Antimicrobial Stewardship Program with questions.ASP Pager: ?[phone] __ See blood culture result for additional information. ?Testing included eight identification and six resistance marker targets. Lab Interpretation Abnormal (test code = 38348-0) [facility]2021-01-12 16:41:09 Test Item Value Reference Range Interpretation Comments POCT GLU (test code = 7697782378) 172 mg/dL 70-110 H Lab Interpretation (test code = Abnormal 26259-8) [facility] with [id number] 14:49:35 Test Item Value Reference Range Interpretation Comments WBC (test code = See_Comment H [Automated 3390-2) message] The system which generated this result transmitted reference range : 4.20 - 10.70 10*3/?L. The reference range was not used to interpret this result as normal/abnormal . RBC (test code = See_Comment L [Automated 842-8) message] The system which generated this result transmitted reference range : 4.26 - 5.52 10*6/?L. The reference range was not used to interpret this result as normal/abnormal . HGB (test code = 10.0 g/dL 12.2-16.4 L 718-7) HCT (test code = 29.7 % 38.4-49.3 L 4544-3) MCV (test code = 90.5 fL 81.7-95.6 787-2) MCH (test code = 30.5 pg 26.1-32.7 785-6) MCHC (test code = 33.7 g/dL 31.2-35.0 786-4) RDW-SD (test code = 46.9 fL 38.5-51.6 61110-1) RDW-CV (test code = 14.5 % 12.1-15.4 788-0) PLT (test code = See_Comment L [Automated 777-3) message] The system which generated this result transmitted reference range : 150 - 328 10*3/?L. The reference range was not used to interpret this result as normal/abnormal . MPV (test code = 10.0 fL 9.8-13.0 50459-0) NRBC/100 WBC (test See_Comment [Automat ed code = 3331577852) message] The system which generated this result transmitted reference range : 0.0 - 10.0 /100 WBCs. The reference range was not used to interpret this result as normal/abnormal . NRBC x10^3 (test code <0.01 See_Comment [Auto mated = [id number]) message] The system which generated this result transmitted reference range : 10*3/?L. The reference range was not used to interpret this result as normal/abnormal . GRAN MAT (NEUT) % 89.4 % (test code = 770-8) IMM GRAN % (test code 2.30 % = 1368697516) LYMPH % (test code = 2.0 % 736-9) MONO % (test code = 5.9 % 5905-5) EOS % (test code = 0.1 % 713-8) BASO % (test code = 0.3 % 706-2) GRAN MAT x10^3(ANC) 10.61 10*3/uL 1.99-6.95 H (test code = 9715325165) IMM GRAN x10^3 (test 0.27 10*3/uL 0.00-0.06 H code = 4187144997) LYMPH x10^3 (test 0.24 10*3/uL 1.09-3.23 L code = 731-0) MONO x10^3 (test code 0.70 10*3/uL 0.36-1.02 = 742-7) EOS x10^3 (test code <0.03 0.06-0.53 L = 711-2) BASO x10^3 (test code 0.04 10*3/uL 0.01-0.09 = 704-7) BANDS (test code = MARKED INCREASED A 4122188091) Lab Interpretation Abnormal (test code = 91968-7) [facility] 12[facility]52:31 Test Item Value Reference Range Interpretation Comments POCT GLU (test code = 9995727151) 175 mg/dL 70-110 H Lab Interpretation (test code = Abnormal 86257-8) [facility] ABDOMEN PELVIS WO [id number] 05:45:07Addendum by Mackenzie Martinez MD on 01/12/2021 12:53 AMAddendum: Epic request placed at 12:50 am on 01/12/2021 for notification of primaryteam of changes to preliminary report (addition of findings ofcirrhosis,small liver nodules and very small pulmonary nodules). 1. ?Fat stranding along the course of the mid ureters, right greater thanleft. No hydronephrosis. No obstructive urolithiasis. May be correlatedwith urinalysis for evidence of infection. 2. ?Hepatic steatosis and morphologic changes of cirrhosis with evidence ofportal hypertension with splenorenal shunting. 3. ?Multiple small subtle hype rattenuating nodular foci in the liver (up to9 mm in size). ?In this patient with cirrhosis, recommend patient [id number] with screening for hepatocellular carcinoma if not alreadyperformed. Nodulesare indeterminate but given small size of foci, mayrepresent regenerative nodules. 4. ?Nonobstructive left renal calculi. 5. ?Cholelithiasis. 6. ?Few very small nonspecific pulmonary nodules at visualized lung basesmeasuring up to 4 mm. Preliminary Report Dictated by Resident: Sharon Pathak I, Mackenzie Martinez MD., have reviewed this study and agree with the abovereport.EXAM: CT ABDOMEN/PELVIS WITHOUT CONTRAST HISTORY: ? 65 years-old Male presenting with Pyelonephritis, complicated COMPARISON: None. TECHNIQUE AND FINDINGS: Contiguous axial imaging from the level of the lungbases through the proximal thighs was performed without the intravenousadministration of contrast. Coronal and sagittal reconstructions wereobtained. ?Auto mA and/or iterative reconstruction were used to reduceradiation dose.FINDINGS: LOWER THORAX: Few small nodules at bilateral lung bases measuring up toapproximately 4 mm in size (left lower lobe, 2:19, for example). Additionalclustered groundglass nodularity is favored infectious or inflammatory inetiology. No cardiomegaly. LIVER: Hepatomegaly with diffuse decrease in hepatic parenchymalattenuation. Nodular hepatic contour consistent with cirrhosis. Severalsmall mildlyhyperattenuating nodular foci are seen within the liver (forexample series 2 image 37, 9 mm). GALLBLADDER AND BILIARY TREE: No biliary ductal dilation. Radiopaquecholelithiasis. No gallbladder wall thic kening. SPLEEN: Spleen measures up to 13 cm. PANCREAS: No ductal dilation or masses within the limits of this unenhancedCT. Pancreatic lipomatosis. ADRENAL GLANDS: No adrenal nodules. KIDNEYS: No hydronephrosis. Right lower renal pole 2.6 cm exophytichypoattenuating cystic structure consistent with a simple cyst. Additionalsmall right superior pole renal cyst also present. Nonobstructing calculiat the left kidney measuring up to 4 mm. PERITONEUM AND RETROPERITONEUM: No free air or fluid. LYMPH NODES: No lymphadenopathy. GI TRACT: No bowel dilation or abnormal wall thickening. The appendix isnormal.Sigmoid colon diverticulosis. PELVIS/BLADDER: The urinary bladder appears unremarkable for the degree ofdistention. Subtle fat stranding surrounds the mid/distal ureters. VESSELS: Multiple splenorenal collaterals. The common hepatic artery arisesfrom the aorta directly. Mild atherosclerotic disease. BONES AND SOFT TISSUES: No suspicious lytic or sclerotic bony lesions.Multilevel degenerative changes of the thoracolumbar spine. Fat-containingbilateral inguinal hernias, right larger than left. Small fat-containingumbilical hernia. Demb, Radiant Results Inft User - 01/12/2021 1:18 AM CDTEXAM: CT ABDOMEN/PELVIS WITHOUT CONTRASTHISTORY: 65 years-old Male presenting with Pyelonephritis, complicated COMPARISON: None.TECHNIQUE AND FINDINGS: Contiguous axial imaging from the level of the lungbases through the proximal thighs was performed without the intravenousadministration of contrast. Coronal and sagittal reconstructions wereobtained. Auto mA and/or iterative reconstruction were used to reducerad iation dose.FINDINGS:LOWER THORAX: Few small nodules at bilateral lung bases measuring up toapproximately 4 mm in size (left lower lobe, 2:19, for example). Additionalclustered groundglass nodularity is favored infectious or inflammatory inetiology. No cardiomegaly.LIVER: Hepatomegaly with diffuse decrease in hepatic parenchymalattenuation. Nodular hepatic contour consistent with cirrhosis. Severalsmall mildly hyperattenuating nodular foci are seen within the liver (forexample series 2 image 37, 9 mm).GALLBLADDER AND BILIARY TREE: No biliary ductal dilation. Radiopaquecholelithiasis. No gallbladderwall thickening.SPLEEN: Spleen measures up to 13 cm.PANCREAS: No ductal dilation or masses within the limits of this unenhancedCT. Pancreatic lipomatosis.ADRENAL GLANDS: No adrenal nodules.KIDNEYS: No hydronephrosis. Right lower renal pole 2.6 cm exophytichypoattenuating cystic structure consistent with a simple cyst. Additionalsmall right superior pole renal cyst also present. Nonobstructing calculiat the left kidney measuring up to 4 mm.PERITONEUM AND RETROPERITONEUM: No free air or fluid.LYMPH NODES: No lymphadenopathy.GI TRACT: No bowel dilation or abnormal wall thickening. The appendix isnormal. Sigmoid colon diverticulosis.PELVIS/BLADDER: The urinary bladder appears unremarkable for the degree ofdistention. Subtle fat stranding surrounds the mid/distal ureters.VESSELS: Multiple splenorenal collaterals. The common hepatic artery arisesfrom the aorta directly. Mild atherosclerotic disease.BONES AND SOFT TISSUES: No suspicious lytic or sclerotic bony lesions.Multilevel degenerative changes of the thoracolumbar spine. Fat-containingbilateral inguinal hernias, right larger than left. Small fat-containingumbilical hernia.IMPRESSION1. Fat stranding along the course of the mid ureters, right greater thanleft. No hydronephrosis. No obstructive urolithiasis. May be correlatedwith urinalysis forevidence of infection.2. Hepatic steatosis and morphologic changes of cirrhosis with evidence ofportal hypertension with splenorenal shunting.3. Multiple small subtle hyperattenuating nodular foci inthe liver (up to9 mm in size). In this patient with cirrhosis, recommend patient [id number] with screening for hepatocellular carcinoma if not alreadyperformed. Nodules are indeterminate but given small size of foci, mayrepresent regenerative nodules.4. Nonobstructive left renal calculi.5. Cholelithiasis.6. Few very small nonspecific pulmonary nodules at visualized lung basesmeasuring up to 4 mm. Preliminary Report Dictated by Resident: Sharon Strong, Mackenzie Martinez MD., have reviewed this study and agree with the abovereport.[facility]2021-[facility]-12 02:34:15 Test Item Value Reference Range Interpretation Comments POCT GLU (test code = 3240583981) 171 mg/dL 70-110 H Lab Interpretation (test code = Abnormal 58091-2) [facility]Urinalysis2021-[facility] 20:50:37 Test Item Value Reference Range Interpretation Comments APPEARANCE (test code = Cloudy Clear A 1066700298) COLOR (test code = Yellow Yellow 7110830706) PH (test code = 4.8-8.0 5503134579) SP GRAVITY (test code = 1.003-1.030 3502222006) GLU U QUAL (test code = Normal Normal 8787148644) BLOOD (test code = 2+ Negative A 1613500573) KETONES (test code = Negative Negative 3027704201) PROTEIN (test code = 100 mg/dL Negative A 2887-8) UROBILIN (test code = Normal Normal 4924862911) BILIRUBIN (test code = Negative Negative 5584511510) NITRITE (test code = Negative Negative 2824112152) LEUK NEO (test code = 500/uL Negative A 7299623230) RBC/HPF (test code = See_Comment H [Autom ated message] 0554803542) The system [employer] generated this result transmit lynn reference range : 0 - 3 HPF. The refe rence range was not u sed to interpret th is result as normal/abnormal . WBC/HPF (test code = >182 See_Comment H [Autom ated message] 8343770332) The system [employer] generated this result transmit lynn reference range : 0 - 5 HPF. The refe rence range was not u sed to interpret th is result as normal/abnormal . BACTERIA (test code = Few Negative A 9585660018) Lab Interpretation (test Abnormal code = 70751-8) [facility]ID NOW RAPID TESTING)2021-01-11 20:44:31 Test Item Value Reference Range Interpretation Comments SARS-CoV-2 Rapid ID NOW Not Detected Not Detected (test code = 95409-4) JOSE (test code = JOSE) ID NOW COVID-19 Assay is an isothermal nucleic acid amplification test intended for the qualitative detection of nucleic acid from SARS-CoV-2 viral RNA in nasopharyngeal (WET MACHINE OPERATOR) specimens. It is used under Emergency Use Authorization (EUA) by FDA. The limit of detection (LOD) of the assay is 125 Genome Equivalents/mL. A positive result is indicative of the presence of SARS-CoV-2 RNA. ?Clinical correlation with patient history and other diagnostic information is necessary to determine patient infection status. A negative (Not Detected) result does not preclude SARS-CoV-2 infection. In patients with clinical symptoms and other tests that are consistent with SARS-CoV-2 infection, negative results should be treated as presumptive negative and a new specimen should be tested with alternative PCR molecular test. Invalid: Please collect a new specimen for repeat patient testing if clinically indicated. Lab Interpretation Normal (test code = 32720-7) [facility]. [facility] (20299)2021-01-11 20:42:51 Test Item Value Reference Range Interpretation Comments NA (test code = 138 mmol/L 135-145 7612366491) K (test code = 3.9 mmol/L 3.5-5.0 5975073075) CL (test code = 102 mmol/L 98-108 6168639488) CO2 TOTAL (test code = 21 mmol/L 23-31 L 0511743604) AGAP (test code = 2-16 3180599486) BUN (test code = 15 mg/dL 7-23 6884729951) GLUCOSE (test code = 152 mg/dL 70-110 H 8414133010) CREATININE (test code = 1.04 mg/dL 0.60-1.25 0923518492) TOTAL BILI (test code = 1.3 mg/dL 0.1-1.1 H 3834435455) CALCIUM (test code = 9.8 mg/dL 8.6-10.6 0169345878) T PROTEIN (test code = 8.1 g/dL 6.3-8.2 3939682919) ALBUMIN (test code = 4.6 g/dL 3.5-5.0 8036667369) ALK PHOS (test code = 123 U/L 34-122 H 6029026253) ALTv (test code = 37 U/L 5-50 1742-6) AST(SGOT) (test code = 69 U/L 13-40 H 8007700318) eGFR (test code = mL/min/1.73m2 6766568984) JOSE (test code = JOSE) Association of Glomerular Filtration Rate (GFR) and Staging of Kidney Disease* + --+ --+ ------+| GFR (mL/min/1.73 m2) ?| With Kidney Damage ?| ?Without Kidney Damage+ --------+ --------+ +| ?>90 ?| ?Stage one ?| ? Normal ?+ ---+ ---+ -------+| ?60-89 ?| ?Stage two ?| ? Decreased GFR ? + --+ --+ ------+| ?30-59 ?| ?Stage three ?| ? Stage three ? + --+ --+ ------+| ?15-29 ?| ?Stage four ? | ? Stage four ?+ ---+ ---+ -------+| ?<15 (or dialysis) ? ?| ?Stage five ? | ? Stage five ?+ ---+ ---+ -------+ *Each stage assumes the associated GFR level has been in effect for at least three months. ?Stages 1 to 5, with or without kidney disease, indicate chronic kidney disease. Notes: Determination of stages one and two (with eGFR >59mL/min/1.73 m2) requires estimation of kidney damage for at least three months as defined by structural or functional abnormalities of the kidney, manifested by either:Pathological abnormalities or Markers of kidney damage (including abnormalities in the composition of the blood or urine or abnormalities in imaging tests). Lab Interpretation Abnormal (test code = 61624-2) [facility] with [id number] 20:31:49 Test Item Value Reference Range Interpretation Comments WBC (test code = See_Comment L [Automated 6690-2) message] The sy stem which generated this result transmitted reference range : 4.20 - 10.70 10*3/?L. The reference range was not used to interpret this result as normal/abnormal . RBC (test code = See_Comment L [Automated 789-8) message] The sy stem which generated this result transmitted reference range : 4.26 - 5.52 10*6/?L. The reference range was not used to interpret this result as normal/abnormal . HGB (test code = 12.4 g/dL 12.2-16.4 718-7) HCT (test code = 35.7 % 38.4-49.3 L 4544-3) MCV (test code = 88.4 fL 81.7-95.6 787-2) MCH (test code = 30.7 pg 26.1-32.7 785-6) MCHC (test code = 34.7 g/dL 31.2-35.0 786-4) RDW-SD (test code = 43.9 fL 38.5-51.6 14857-9) RDW-CV (test code = 13.7 % 12.1-15.4 788-0) PLT (test code = See_Comment L [Automated 777-3) message] The sy stem which generated this result transmitted reference range : 150 - 328 10*3/ ?L. The reference r sarina was not used to interpret this result as normal/abnormal . MPV (test code = 9.0 fL 9.8-13.0 L 18557-8) NRBC/100 WBC (test See_Comment [Automat ed code = 9748666202) message] The system which generated this result transmitted reference range : 0.0 - 10.0 /100 WBCs. The refer ence range was not u sed to interpret th is result as normal/abnormal . NRBC x10^3 (test code <0.01 See_Comment [Auto mated = 6831528401) message] The s ystem which generated this result transmitted reference range : 10*3/?L. The reference range was not used to interpret this result as normal/abnormal . GRAN MAT (NEUT) % 90.2 % (test code = 770-8) IMM GRAN % (test code 0.30 % = 4734349815) LYMPH % (test code = 6.1 % 736-9) MONO % (test code = 1.8 % 5905-5) EOS % (test code = 0.8 % 713-8) BASO % (test code = 0.8 % 706-2) GRAN MAT x10^3(ANC) 3.53 10*3/uL 1.99-6.95 (test code = 6536019388) IMM GRAN x10^3 (test <0.03 0.00-0.06 code = 2648407098) LYMPH x10^3 (test code 0.24 10*3/uL 1.09-3.23 L = 731-0) MONO x10^3 (test code 0.07 10*3/uL 0.36-1.02 L = 742-7) EOS x10^3 (test code = 0.03 10*3/uL 0.06-0.53 L 711-2) BASO x10^3 (test code 0.03 10*3/uL 0.01-0.09 = 704-7) Lab Interpretation Abnormal (test code = 53288-7) [facility] [id number] 20:29:06HISTORY: Cough. TECHNIQUE: Portable AP view of the chest is obtained. Comparison made with2 views ofthe chest dated 10/09/2016. FINDINGS: No acute pneumonia. No pneumothorax or pleural effusion orpulmonary congestion detected. Cardiac size is within upper normal limits.Slightly elongated and tortuous thoracic aorta noted. CONCLUSIONS: No signs of acute cardiopulmonary disease.Demb, Radiant Results Inft User - 01/11/2021 3:30 PM CDTHISTORY: Cough.TECHNIQUE: Portable AP view of the chest is obtained.Comparison made with2 views of the chest dated 10/09/2016.FINDINGS: No acute pneumonia. No pneumothorax or pleural effusion orpulmonary congestion detected. Cardiac size is within upper normal limits.Sli ghtly elongated and tortuous thoracic aorta noted.CONCLUSIONS: No signs of acute cardiopulmonary disease.[facility] HospitalLactic Acid Whole [id number] 20:20:15 Test Item Value Reference Range Interpretation Comments LACTIC ACID (test code = 1.71 mmol/L 0.50-2.20 QUE S [id number]) Lab Interpretation (test code = Normal 35919-9) [facility]"
[2021-11-28] MEDS ORDERED: ONDANSETRON 4 MG/2 ML VIAL ONE ×2 (20:02→21:21)
[2021-11-28] MEDS ORDERED: MORPHINE 4 MG/ML SYR ONE ×2 (20:02→21:21)
[2021-11-28] MEDS ORDERED: NA CHLORIDE 0.9% 500 ML ONE (20:03)
[2021-11-28] MEDS ORDERED: NA CHLORIDE 0.9% 1,000 ML ONE (20:03)
[2021-11-28] MEDS ORDERED: FENTANYL CITR 100 MCG/2 ML ONE (20:04)
[2021-11-28 20:14] LABS: Absolute Lymphocytes (CBC) 0.8 K/uL (0.7-4.9); Hematocrit 35.2 % (39.6-49.0); Lymphocytes % 13.9 % (15.3-44.8); MPV 7.8 fL (7.6-11.3); RBC Red Blood Cell Count 3.91 M/uL (4.33-5.43)
[2021-11-28 20:17] LABS: Protime INR 1.12
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
[2021-11-28 20:59] LABS: Urine Blood Trace-intact (Negative); Urine Glucose Negative (Negative); Urine Protein Negative (Negative); Urine Specific Gravity 1.015 (1.005-1.030); Urine pH 6.5 (5.0-7.0)
[2021-11-28] MEDS ORDERED: NA CHLORIDE 0.9% 50 ML ONE (21:17)
[2021-11-28] MEDS ORDERED: CEFTRIAXONE 1000 MG/VIAL ONE (21:17)
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
[2021-11-28] MEDS ORDERED: HYDROCODONE/APAP 10/325 TAB ONE (21:58)
[2021-11-28] MEDS ORDERED: D10W 250 ML IV ONE (22:28)
[2021-11-28 22:37] LABS: Albumin 3.3 g/dL (3.4-5.0); Bilirubin Direct 0.3 mg/dL (0-0.2); Bilirubin Total 0.8 mg/dL (0.2-1.0); Magnesium 1.7 mg/dL (1.8-2.4); Potassium 3.9 mmol/L (3.5-5.1); Protein, Total 7.3 g/dL (6.4-8.2)
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
[2021-11-28] MEDS ORDERED: HYDROCODONE/APAP 7.5/325 MG TAB ONE (23:12)
[2021-11-28] MEDS ORDERED: MAGNESIUM SULFATE 1 gm IVPB 1 GM/100 ML BAG IV ONE (23:47)
[2021-11-29] MEDS ORDERED: MORPHINE 4 MG/ML SYR ONE (00:41)
[2021-11-29] MEDS ORDERED: ONDANSETRON 4 MG/2 ML VIAL ONE (00:41)
[2021-11-29 10:15] VITALS: O2SAT 98
[2021-11-29 10:18] VITALS: BP 140/78; TEMP 98.5
== END 2021-11-29 00:46 | disposition short-term general hospital (02) ==
LOC: ER 19:28
DX: S22.22XA Fracture of body of sternum, initial encounter for closed fracture (principal); E11.65 Type 2 diabetes mellitus with hyperglycemia; R74.8 Abnormal levels of other serum enzymes; E66.8 Other obesity; V49.9XXA Car occupant (driver) (passenger) injured in unspecified traffic accident, initial encounter; Z68.37 Body mass index [BMI] 37.0-37.9, adult; Z85.46 Personal history of malignant neoplasm of prostate
CPT/HCPCS: 96365; 96367; 96361; 93005; 87088; 85025; 87086; 80048; 36415; 86900; 83735; 86850; 85610; 82565; 86901; 80076; 87077; 87186; 81003; 84484; 83690; 83880; 70450; 72125; 71260; 74177; 71045; 73562; 96375; 99285; Q9967; J3010; J3475; J7040; J7030; J2405 ×3

== ENCOUNTER 2024-01-24 15:28 | Inpatient (IN) | payer OTHER ==
[2024-01-24] MEDS ORDERED: NA CHLORIDE 0.9% 500 ML ONE ×2 (16:19→17:38)
[2024-01-24 16:27] LABS: Absolute Basophils 0.1 K/uL (0-0.5); Absolute Eosinophils 0.1 K/uL (0-0.5); Absolute Monocytes 0.4 K/uL (0.1-1.3); Absolute Neutrophil 2.7 K/uL (1.8-8.0); Basophils % 1.2 % (0-1.3); Eosinophils % 2.3 % (0-4.4); Hematocrit 32.2 % (39.6-49.0); Hemoglobin 11.1 g/dL (13.6-17.9); Lymphocytes % 22.4 % (15.3-44.8); MCH 30.1 pg (27.0-35.0); MCHC 34.5 g/dL (32.0-36.0); MCV 87.2 fL (80-100); MPV 6.7 fL (7.6-11.3); Monocytes % 10.3 % (3.3-12.3); Neutrophils % 63.8 % (41.7-73.7); Platelets 266 thou/uL (152-406); RBC Red Blood Cell Count 3.69 M/uL (4.33-5.43); Red Cell Distribution Width 15.6 % (12.1-15.2)
[2024-01-24 16:43] LABS: Albumin 2.8 g/dL (3.4-5.0); Albumin/Globulin Ratio 0.6 (1.1-1.8); Anion Gap 10.9 mEq/L (5.0-15.0); Bilirubin Total 0.9 mg/dL (0.2-1.0); Globulin 4.9 g/dL (2.3-3.5); Potassium 3.9 mEq/L (3.5-5.1); Protein, Total 7.7 g/dL (6.4-8.2)
[2024-01-24] MEDS ORDERED: INSULIN GLARGINE 100 UNIT/ML SQ ONE (17:33)
[2024-01-24] MEDS ORDERED: INSULIN REGULAR (HUMAN) 100 UNIT/ML ONE (17:34)
--- NOTE | 2024-01-24 17:35 | EDPHYS ---
Physician Documentation [facility] Name: Ben Mittal Age: 68 yrs Sex: Male : 1955 Arrival Date: 01/24/2024 Time: 15:28 Bed 13 Private MD: ABAD Physician Davide Lopez HPI: 01/23 17:29 This 68 yrs old Male presents to ER via Ambulatory with complaints of Leg ravi Swelling - abscess. 17:29 The patient presents with an abscess, pain. The complaints affect the left calf. ravi Context: The problem was sustained at an unknown site, resulted from an unknown cause. Onset: The symptoms/episode began/occurred 1 week(s) ago. Modifying factors: The symptoms are alleviated by OTC meds, remaining still, the symptoms are aggravated by movement, weight bearing. Associated signs and symptoms: The patient has no apparent associated signs or symptoms. Severity of symptoms: At their worst the symptoms were moderate, in the emergency department the symptoms are unchanged. The patient has experienced similar episodes in the past, several times. Historical: - Allergies: 15:57 No Known Allergies; cm10 - PMHx: 15:57 diabetes mellitus; Prostate Cancer; Hypertensive disorder; cm10 - PSHx: 15:57 Left knee replacement; cm10 - Immunization history:: Adult Immunizations up to date. - Infectious Disease History:: Denies. - Social history:: Smoking status: Patient denies any tobacco usage or history of. ROS: 17:30 Constitutional: Negative for fever, chills, and weight loss, Eyes: Negative for injury, ravi pain, redness, and discharge, ENT: Negative for injury, pain, and discharge, Neck: Negative for injury, pain, and swelling, Cardiovascular: Negative for chest pain, palpitations, and edema, Respiratory: Negative for shortness of breath, cough, wheezing, and pleuritic chest pain, Abdomen/GI: Negative for abdominal pain, nausea, vomiting, diarrhea, and constipation, Back: Negative for injury and pain, : Negative for injury, bleeding, discharge, and swelling, Neuro: Negative for headache, weakness, numbness, tingling, and seizure, Psych: Negative for depression, anxiety, suicide ideation, homicidal ideation, and hallucinations, Allergy/Immunology: Negative for hives, rash, and allergies, Endocrine: Negative for neck swelling, polydipsia, polyuria, polyphagia, and marked weight changes, Hematologic/Lymphatic: Negative for swollen nodes, abnormal bleeding, and unusual bruising, 17:30 MS/extremity: Positive for erythema, pain, swelling, tenderness, of the left leg and left calf, 17:30 Skin: Positive for abscess, erythema, swelling, diffusely, Exam: 17:30 Constitutional: This is a well developed, well nourished patient who is awake, alert, ravi and in no acute distress. Head/Face: Normocephalic, atraumatic. Eyes: Pupils equal round and reactive to light, extra-ocular motions intact. Lids and lashes normal. Conjunctiva and sclera are non-icteric and not injected. Cornea within normal limits. Periorbital areas with no swelling, redness, or edema. ENT: Nares patent. No nasal discharge, no septal abnormalities noted. Tympanic membranes are normal and external auditory canals are clear. Oropharynx with no redness, swelling, or masses, exudates, or evidence of obstruction, uvula midline. Mucous membranes moist. Neck: Trachea midline, no thyromegaly or masses palpated, and no cervical lymphadenopathy. Supple, full range of motion without nuchal rigidity, or vertebral point tenderness. No Meningismus. Chest/axilla: Normal chest wall appearance and motion. Nontender with no deformity. No lesions are appreciated. Cardiovascular: Regular rate and rhythm with a normal S1 and S2. No gallops, murmurs, or rubs. Normal PMI, no JVD. No pulse deficits. Respiratory: Lungs have equal breath sounds bilaterally, clear to auscultation and percussion. No rales, rhonchi or wheezes noted. No increased work of breathing, no retractions or nasal flaring. Abdomen/GI: Soft, non-tender, with normal bowel sounds. No distension or tympany. No guarding or rebound. No evidence of tenderness throughout. Back: No spinal tenderness. No costovertebral tenderness. Full range of motion. Male : Normal genitalia with no discharge or lesions. Skin: Warm, dry with normal turgor. Normal color with no rashes, no lesions, and no evidence of cellulitis. Neuro: Awake and alert, GCS 15, oriented to person, place, time, and situation. Cranial nerves II-XII grossly intact. Motor strength 5/5 in all extremities. Sensory grossly intact. Cerebellar exam normal. Normal gait. Psych: Awake, alert, with orientation to person, place and time. Behavior, mood, and affect are within normal limits. 17:30 Musculoskeletal/extremity: ROM: full active range of motion, full passive range of motion, Circulation is intact in all extremities. Sensation intact. Compartment Syndrome exam of affected extremity: is normal. Weight bearing: able to fully bear weight, without difficulty, DVT Exam: negative Homans' sign noted on exam, no appreciated bluish discoloration, pain, swelling, tenderness, erythema, increased warmth, that is moderate, of the left leg, of the left calf, 17:30 Skin: abscess, that is moderate sized, of the left calf, cellulitis, that is moderate, induration, that is moderate is noted, Vital Signs: 15:56 BP 180 / 86; Pulse 99; Resp 18; Temp 98.2; Pulse Ox 97% ; Weight 101.15 kg; Height 5 cm10 ft. 5 in. ; Pain 5/10; 16:30 BP 124 / 52; Pulse 83; Resp 16; Pulse Ox 96% on R/A; db 17:00 BP 140 / 69; Pulse 81; Resp 16; Pulse Ox 98% on R/A; db 17:30 BP 139 / 69; Pulse 81; Resp 16; Pulse Ox 97% on R/A; db 18:00 BP 151 / 73; Pulse 81; Resp 18; Temp 98.2; Pulse Ox 97% on R/A; db 18:30 BP 145 / 73; Pulse 89; Resp 18; Pulse Ox 98% on R/A; db 15:56 Body Mass Index 37.11 (101.15 kg, 165.1 cm) cm10 15:56 Pain Scale: Adult cm10 MDM: 15:50 Patient medically screened. ravi 17:32 Differential diagnosis: contusion, tendonitis. Differential Diagnosis altered mental ravi status, sepsis. Data reviewed: vital signs, nurses notes, lab test result(s), radiologic studies, plain films, ultrasound. Consideration of Admission/Observation Patient was admitted/placed on observation. Escalation of care including admission/observation considered. I considered the following discharge prescriptions or medication management in the emergency department Medications were administered in the Emergency Department. See MAR. Independent interpretation of the following test(s) in the Emergency Department X-Ray: My interpretation is leftr tib fib neg. Test considered but Not performed: EKG: no ekg. Historians other than the Patient: Family Member: son well informed. Care significantly affected by the following chronic conditions: Diabetes, Hypertension, Obesity. 01/23 15:51 Order name: CBC with Diff; Complete Time: 17:24 ravi 01/23 15:51 Order name: Comprehensive Metabolic Panel; Complete Time: 17:24 ravi 01/23 17:35 Order name: PT-INR; Complete Time: 19:07 ravi 01/23 17:41 Order name: Urinalysis w/ reflexes EDMS 01/23 17:41 Order name: Basic Metabolic Panel EDMS 01/23 17:42 Order name: Basic Metabolic Panel EDMS 01/23 17:42 Order name: Basic Metabolic Panel EDMS 01/23 17:42 Order name: Basic Metabolic Panel EDMS 01/23 17:42 Order name: Basic Metabolic Panel EDMS 01/23 17:42 Order name: CBC with Automated Diff EDMS 01/23 17:42 Order name: CBC with Automated Diff EDMS 01/23 17:42 Order name: CBC with Automated Diff EDMS 01/23 17:42 Order name: CBC with Automated Diff EDMS 01/23 17:42 Order name: CBC with Automated Diff EDMS 01/23 17:42 Order name: Magnesium EDMS 01/23 17:42 Order name: Magnesium EDMS 01/23 17:42 Order name: Magnesium EDMS 01/23 17:42 Order name: Magnesium EDMS 01/23 17:42 Order name: Magnesium EDMS 01/23 19:04 Order name: Glucose, Ancillary Testing; Complete Time: 19:07 EDMS 01/23 17:25 Order name: Tib Fib Left XRAY; Complete Time: 18:12 ravi 01/23 17:35 Order name: Chest Single View XRAY; Complete Time: 18:12 ravi 01/23 17:44 Order name: Extremity Nonvascular Complete; Complete Time: 19: EDMS 01/23 17:44 Order name: Extremity Venous Uni Ltd; Complete Time: 19:07 EDMS 01/23 18:33 Order name: US; Complete Time: 19:07 EDMS 01/23 17:25 Order name: Wound dressing; Complete Time: 18:56 ravi 01/23 17:35 Order name: EKG - Nurse/Tech; Complete Time: 18:55 ravi Administered Medications: 16:21 Drug: NS 0.9% IV 500 ml IV at bolus once Route: IV; Rate: bolus; Site: left antecubital;db 17:50 Follow up: Response: No adverse reaction; IV Status: Completed infusion; IV Intake: db 500ml 17:40 Drug: Insulin Regular Human IVP 5 units IVP once {Co-Signature: me1 (Sruthi Aleman RN).} Route: IVP; Site: left antecubital; 18:55 Follow up: Response: No adverse reaction db 17:50 Drug: NS 0.9% IV 500 ml IV at bolus once Route: IV; Rate: bolus; Site: left antecubital;db 18:46 Follow up: Response: No adverse reaction; IV Status: Completed infusion; IV Intake: db 500ml 17:55 Drug: Insulin Glargine Sub-Q 30 units Sub-Q once {Co-Signature: me1 (Sruthi Aleman RN).} Route: Sub-Q; Site: left upper arm; 18:47 Follow up: Response: No adverse reaction db 18:00 Drug: Piperacillin-Tazobactam IVPB 3.375 grams IVPB once over 60 mins; (mix in NS 100 db mL) Route: IVPB; Infused Over: 60 mins; Site: left antecubital; 18:35 Follow up: Response: No adverse reaction; IV Status: Completed infusion; IV Intake: 50mldb 18:40 Drug: vancoMYCIN IVPB 1 grams IVPB once over 2 hrs Route: IVPB; Infused Over: 2 hrs; db Site: left antecubital; 18:56 Follow up: Response: No adverse reaction; IV Status: Infusion continued upon admission db 18:40 Drug: NS 0.9% IV 1000 ml IV at 125 ml/hr continuous Route: IV; Rate: 125 ml/hr; Site: db left antecubital; 18:55 Follow up: IV Status: Completed infusion; Infusion continued upon admission db Point of Care Testing: Blood Glucose: 18:53 Blood Glucose: 124 mg/dL; db Ranges: Critical Glucose Levels:Adult <50 mg/dl or >400 mg/dl <40 mg/dl or >180 mg/dl Disposition Summary: 01/24/24 17:34 Hospitalization Ordered Notes: Hospitalization Status: Inpatient Admission [facility] Provider: Shena Prajapati cha Location: Telemetry/MedSurg (Inpatient) ravi Condition: Stable ravi Problem: new ravi Symptoms: have improved ravi Bed/Room Type: [facility] Room Assignment: 217(01/24/24 17:55) eb Diagnosis - Cutaneous abscess of left lower limb ravi - Cellulitis of left lower limb ravi - Type 2 diabetes mellitus with hyperglycemia ravi Forms: - Medication Reconciliation Form ravi - SBAR form ravi - Leadership Thank You Letter [facility] Signatures: Dispatcher [employer] EDMS Davide Lopez MD MD cha Botello, Elizabeth eb Benton, Danielle, RN RN db Kaylin Hatch RN RN cm10 Sruthi Aleman RN me1 Corrections: (The following items were deleted from the chart) 17:35 17:35 Chest Single View+RAD.RAD.BRZ ordered. EDMS EDMS 17:44 17:34 Lower Extremity Artery Uni Ltd ordered. EDMS EDMS 17:55 17:34 ravi eb
--- NOTE | 2024-01-24 17:35 | ER ---
Nurse's Notes [facility] Name: Ben Mittal Age: 68 yrs Sex: Male : 1955 Arrival Date: 01/24/2024 Time: 15:28 Bed 13 Private MD: Diagnosis: Cutaneous abscess of left lower limb;Cellulitis of left lower limb;Type 2 diabetes mellitus with hyperglycemia Presentation: 01/23 15:56 Chief complaint: Patient states: Abscess to back of left leg. Pt states that he noticed cm10 it this morning and it was draining. Pt was seen here a few weeks ago for same issue and was admitted. Coronavirus screen: Client denies travel out of the [place] in the last 14 days. At this time, the client does not indicate any symptoms associated with coronavirus-19. Ebola Screen: Patient denies travel to an Ebola-affected area in the 21 days before illness onset. No symptoms or risks identified at this time. Initial Sepsis Screen: Does the patient meet any 2 criteria? HR > 90 bpm. Does the patient have a suspected source of infection? No. Patient's initial sepsis screen is negative. Risk Assessment: Do you want to hurt yourself or someone else? Patient reports no desire to harm self or others. Onset of symptoms was January 24, 2024. 15:56 Method Of Arrival: Ambulatory cm10 15:56 Acuity: SUNG 3 cm10 Triage Assessment: 15:58 General: Appears in no apparent distress. comfortable, Behavior is calm, cooperative. cm10 Pain: Complains of pain in left calf. Derm: Abscess located on left calf. Historical: - Allergies: 15:57 No Known Allergies; cm10 - PMHx: 15:57 diabetes mellitus; Prostate Cancer; Hypertensive disorder; cm10 - PSHx: 15:57 Left knee replacement; cm10 - Immunization history:: Adult Immunizations up to date. - Infectious Disease History:: Denies. - Social history:: Smoking status: Patient denies any tobacco usage or history of. Screenin:12 [facility] ED Fall Risk Assessment (Adult) History of falling in the last 3 months, db including since admission No falls in past 3 months (0 pts) Confusion or Disorientation No (0 pts) Intoxicated or Sedated No (0 pts) Impaired Gait No (0 pts) Mobility Assist Device Used No (0 pt) Altered Elimination No (0 pt) Score/Fall Risk Level 0 - 2 = Low Risk Oriented to surroundings, Maintained a safe environment. Abuse screen: Denies threats or abuse. Denies injuries from another. Nutritional screening: No deficits noted. Tuberculosis screening: No symptoms or risk factors identified. Assessment: 16:45 Reassessment: Patient appears in no apparent distress at this time. Patient and/or db family updated on plan of care and expected duration. Pain level reassessed. Patient is alert, oriented x 3, equal unlabored respirations, skin warm/dry/pink. 17:33 Reassessment: Patient appears in no apparent distress at this time. Patient and/or db family updated on plan of care and expected duration. Pain level reassessed. Patient is alert, oriented x 3, equal unlabored respirations, skin warm/dry/pink. General: Appears in no apparent distress. comfortable, Behavior is calm, cooperative, appropriate for age. Pain: Complains of pain in left leg and left calf. Neuro: Level of Consciousness is awake, alert, obeys commands, Oriented to person, place, time, situation. Respiratory: Airway is patent Respiratory effort is even, unlabored, Respiratory pattern is regular, symmetrical. Derm: Abscess located on left calf. 18:11 Reassessment: SNIPPER AT PATIENT BEDSIDE. db 18:34 Reassessment: Patient appears in no apparent distress at this time. Patient and/or db family updated on plan of care and expected duration. Pain level reassessed. Patient is alert, oriented x 3, equal unlabored respirations, skin warm/dry/pink. 18:48 Reassessment: Patient appears in no apparent distress at this time. Patient and/or db family updated on plan of care and expected duration. Pain level reassessed. Patient is alert, oriented x 3, equal unlabored respirations, skin warm/dry/pink. DRESSING APPLIED TO LEFT CALF. 18:53 Reassessment: PATIENT PROVIDED FOOD. RECHECKED SUGAR WAS 124. db Vital Signs: 15:56 BP 180 / 86; Pulse 99; Resp 18; Temp 98.2; Pulse Ox 97% ; Weight 101.15 kg; Height 5 cm10 ft. 5 in. ; Pain 5/10; 16:30 BP 124 / 52; Pulse 83; Resp 16; Pulse Ox 96% on R/A; db 17:00 BP 140 / 69; Pulse 81; Resp 16; Pulse Ox 98% on R/A; db 17:30 BP 139 / 69; Pulse 81; Resp 16; Pulse Ox 97% on R/A; db 18:00 BP 151 / 73; Pulse 81; Resp 18; Temp 98.2; Pulse Ox 97% on R/A; db 18:30 BP 145 / 73; Pulse 89; Resp 18; Pulse Ox 98% on R/A; db 15:56 Body Mass Index 37.11 (101.15 kg, 165.1 cm) cm10 15:56 Pain Scale: Adult cm10 ED Course: 15:24 Inserted saline lock: 22 gauge in left antecubital area, using aseptic technique. Blood db collected. 15:44 Patient arrived in ED. ra3 15:50 Davide Lopez MD is Attending Physician. ravi 15:57 Triage completed. cm10 15:58 Arm band placed on Patient placed in an exam room, on a stretcher, on pulse oximetry. cm10 16:05 Maren Jarrett RN is Primary Nurse. db 17:33 Shena Prajapati MD is Hospitalizing Provider. ravi 17:49 Tib Fib Left XRAY In Process Unspecified. EDMS 17:49 Chest Single View XRAY In Process Unspecified. EDMS 18:13 Patient has correct armband on for positive identification. Bed in low position. Call db light in reach. Side rails up X 1. Provided Education on: ADMISSION. Pulse ox on. NIBP on. Warm blanket given. Pillow given. 18:47 Wound care: to ABSCESS located on left calf Patient tolerated well. db 18:54 No provider procedures requiring assistance completed. Patient admitted, IV remains in db place. Administered Medications: 16:21 Drug: NS 0.9% IV 500 ml IV at bolus once Route: IV; Rate: bolus; Site: left antecubital;db 17:50 Follow up: Response: No adverse reaction; IV Status: Completed infusion; IV Intake: db 500ml 17:40 Drug: Insulin Regular Human IVP 5 units IVP once {Co-Signature: me1 (Sruthi Aleman db RN).} Route: IVP; Site: left antecubital; 18:55 Follow up: Response: No adverse reaction db 17:50 Drug: NS 0.9% IV 500 ml IV at bolus once Route: IV; Rate: bolus; Site: left antecubital;db 18:46 Follow up: Response: No adverse reaction; IV Status: Completed infusion; IV Intake: db 500ml 17:55 Drug: Insulin Glargine Sub-Q 30 units Sub-Q once {Co-Signature: me1 (Sruthi Aleman RN).} Route: Sub-Q; Site: left upper arm; 18:47 Follow up: Response: No adverse reaction db 18:00 Drug: Piperacillin-Tazobactam IVPB 3.375 grams IVPB once over 60 mins; (mix in NS 100 db mL) Route: IVPB; Infused Over: 60 mins; Site: left antecubital; 18:35 Follow up: Response: No adverse reaction; IV Status: Completed infusion; IV Intake: 50mldb 18:40 Drug: vancoMYCIN IVPB 1 grams IVPB once over 2 hrs Route: IVPB; Infused Over: 2 hrs; db Site: left antecubital; 18:56 Follow up: Response: No adverse reaction; IV Status: Infusion continued upon admission db 18:40 Drug: NS 0.9% IV 1000 ml IV at 125 ml/hr continuous Route: IV; Rate: 125 ml/hr; Site: db left antecubital; 18:55 Follow up: IV Status: Completed infusion; Infusion continued upon admission db Medication: 18:00 VIS not applicable for this client. db Point of Care Testing: Blood Glucose: 18:53 Blood Glucose: 124 mg/dL; db Ranges: Intake: 17:50 IV: 500ml; Total: 500ml. db 18:35 IV: 50ml; Total: 550ml. db 18:46 IV: 500ml; Total: 1050ml. db Outcome: 17:34 Decision to Hospitalize by Provider. ravi 18:54 Admitted to ER Hold. Please see [facility] for further documentation. db 18:54 Condition: stable 18:54 Instructed on the need for admit, 19:18 Patient left the ED. cm10 Signatures: Dispatcher [employer] Davide Corea MD MD cha Benton, Danielle RN Kaylin Charles RN RN 10 Shivani Weinstein ra3 Sruthi Aleman RN me1 Corrections: (The following items were deleted from the chart) 18:15 18:00 BP 151 / 73; Pulse 81bpm; Resp 18bpm; Pulse Ox 97% RA; db db
[2024-01-24] MEDS ORDERED: ACETAMINOPHEN 500 MG TAB PO PRN (17:36)
[2024-01-24] MEDS ORDERED: ZOLPIDEM TARTRATE 5 MG TABLET PO PRN (17:36)
[2024-01-24] MEDS ORDERED: VANCOMYCIN 1 GM/VIAL ONE (17:37)
[2024-01-24] MEDS ORDERED: NA CHLORIDE 0.9% 250 ML ONE (17:38)
[2024-01-24] MEDS ORDERED: PIPERACIL/TAZO 3.375 GM VIAL IV ONE (17:39)
[2024-01-24] MEDS ORDERED: NA CHLORIDE 0.9% 100 ML ONE (17:39)
--- NOTE | 2024-01-24 17:41 | P.HP ---
Certification for Inpatient Patient admitted to: Inpatient Practitioner: I am a practitioner with admitting privileges, knowledge of patient current condition, hospital course, and medical plan of care. Services: Services provided to patient in accordance with Admission requirements found in Title 42 Section 412.3 of the Code of Federal Regulations Patient History Date of Service: 01/25/24 Reason for admission: Cellulitis left lower extremity History of Present Illness: 68 yrs old Male with a past medical diabetes mellitus; Prostate Cancer; Hypertensive disorder presents with a left lower extremity posterior calf wound. He reports symptoms started about 1 month ago. Is progressively getting worse. He reports recent admission 3 weeks ago. Failed outpatient treatment antibiotics. He reports left lower extremity pain, swelling, drainage, with wound. ER evaluation BP 180 / 86; Pulse 99; Resp 18; Temp 98.2; Pulse Ox 97% ; Weight 101.15 kg; Height 5 cm10 ft. 5 in. ; Pain 5/10; treated with vancomycin, Zosyn, in the emergency room. Normal saline, Lantus given 30 units x 1. No reported fever, chills, chest pain, shortness of breath. Plan to admit for Cutaneous abscess of left lower limb, Cellulitis of left lower limb, Type 2 diabetes mellitus with hyperglycemia. With surgery to consult. Left lower extremity Doppler IMPRESSION: No flow limiting stenosis within the left lower extremity. Left lower extremity x-ray FINDINGS/IMPRESSION: No fracture of the tibia or fibula identified. Left knee arthroplasty with partially imaged hardware intact. Venous Doppler IMPRESSION: No DVT in the left lower extremity Allergies No Known Allergies Allergy (Unverified 01/06/24 22:47) Home Medications: Aspirin [Adult Low Dose Aspirin EC] 81 mg PO DAILY 01/07/24 Atorvastatin Calcium 20 mg PO DAILY 01/07/24 Folic Acid 1 mg PO DAILY 01/07/24 Gabapentin 300 mg PO DAILY 01/07/24 Lisinopril [Zestril] 5 mg PO DAILY 01/07/24 Metformin ER [Glucophage ER*] 1,000 mg PO BID 01/07/24 Omeprazole 20 mg PO DAILY 01/07/24 Tamsulosin [Flomax*] 0.4 mg PO DAILY 01/07/24 oxyBUTYnin chloride [Oxybutynin Chloride] 5 mg PO DAILY 01/07/24 Amox/Clavulanate [Augmentin 875-125 Tab] 1 each PO BID #14 tab 01/08/24 Hydrocodone 7.5/APAP 325 [Clay 7.5/325 mg*] 1 tab PO Q4H PRN #10 tab 01/08/24 - Past Medical/Surgical History -: Diabetes -: Prostate -: Left TKR Review of Systems Per HPI Physical Examination - Physical Exam General: Alert, In no apparent distress, Oriented x3 HEENT: Atraumatic, Normocephalic Neck: Supple, 2+ carotid pulse no bruit Respiratory: Clear to auscultation bilaterally, Normal air movement Cardiovascular: No edema, Normal pulses Capillary refill: >2 Seconds Gastrointestinal: Normal bowel sounds, Soft and benign Musculoskeletal: No clubbing, No swelling Integumentary: Other (Left lower extremity posterior calf cellulitis, with wound.) Neurological: Normal speech, Normal strength at 5/5 x4 extr - Studies Laboratory Data (last 24 hrs) 01/24/24 01/24/24 16:16 16:16 WBC 4.30 Hgb 11.1 L Hct 32.2 L Plt Count 266 Sodium 134 L Potassium 3.9 BUN 10 Creatinine 1.17 Glucose 310 H Total Bilirubin 0.9 AST 27 ALT 22 Alkaline Phosphatase 90 Assessment and Plan - Plan Assessment plan Cutaneous abscess of left lower limb Cellulitis of left lower limb Failed outpatient treatment antibiotics Surgery to consult, n.p.o. after midnight, IV vancomycin, IV cefepime, As needed analgesics, antiemetics, e reports symptoms started about 1 month ago. Is progressively getting worse. He reports recent admission 3 weeks ago. Failed outpatient treatment antibiotics. He reports left lower extremity pain, swelling, drainage, with wound. ER evaluation BP 180 / 86; Pulse 99; Resp 18; Temp 98.2; Pulse Ox 97% ; Weight 101.15 kg; Height 5 cm10 ft. 5 in. ; Pain 5/10; treated with vancomycin, Zosyn, in the emergency room. Left lower extremity Doppler IMPRESSION: No flow limiting stenosis within the left lower extremity. Left lower extremity x-ray FINDINGS/IMPRESSION: No fracture of the tibia or fibula identified. Left knee arthroplasty with partially imaged hardware intact. Venous Doppler IMPRESSION: No DVT in the left lower extremity Type 2 diabetes mellitus with hyperglycemia Sliding scale, Accu-Cheks, A1c, Normal saline, Lantus given 30 units x 1 in the ER. Prostate Cancer Hypertensive unknown control Telemetry, Resume appropriate home meds Full code DVT SCDs Diet n.p.o. after midnight Disposition Home, uses a cane, family at bedside Discharge Plan: Home - Advance Directives Does patient have a Living Will: No Does patient have a Durable POA for Healthcare: No - Code Status/Comfort Care Code Status: Full Code Critical Care: No Time Spent Managing Pts Care (In Minutes): 55
--- NOTE | 2024-01-24 17:55 | RAD REPORT ---
EXAM DESCRIPTION: RAD - Chest Single View - 01/24/2024 5:47 pm CLINICAL HISTORY: COUGH COMPARISON: Chest Single View dated 01/06/2024; Chest Single View dated 11/28/2021 FINDINGS: Lines: None. Lungs: Pulmonary vascular congestion. No alveolar edema or consolidation Pleural: No significant pleural effusions or pneumothorax. Cardiac: Similar enlargement of the cardiopericardial silhouette. Mediastinum: Within normal limits. Bones: No acute fractures. Other: None IMPRESSION: Pulmonary vascular congestion.
--- NOTE | 2024-01-24 17:56 | RAD REPORT ---
EXAM DESCRIPTION: RAD - Tib Fib Left - 01/24/2024 5:47 pm CLINICAL HISTORY: PAIN COMPARISON: No comparisons FINDINGS/IMPRESSION: No fracture of the tibia or fibula identified. Left knee arthroplasty with part ially imaged hardware intact.
--- NOTE | 2024-01-24 18:27 | RAD REPORT ---
EXAM DESCRIPTION: US - Extremity Venous Uni Ltd - 01/24/2024 6:20 pm CLINICAL HISTORY: Abscess COMPARISON: None. TECHNIQUE: Real-time sonographic evaluation of the left lower extremity deep venous system was perfo rmed. FINDINGS: Normal compressibility, flow augmentation, phasic flow and spontaneous flow is identified in the left lower extremity deep venous system. No intraluminal filling defects seen. IMPRESSION: No DVT in the left lower extremity.
[2024-01-24 18:28] LABS: PT Prothrombin Time 13.6 SECONDS (9.5-12.5); Protime INR 1.24
--- NOTE | 2024-01-24 18:32 | RAD REPORT ---
EXAM DESCRIPTION: US - Lower Extremity Artery Uni Ltd - 01/24/2024 6:21 pm CLINICAL HISTORY: Abscess COMPARISON: None FINDINGS: Color Doppler, grayscale, and spectral analysis was performed. The common femoral, superficial femoral and popliteal arteries demonstrate triphasic waveforms The posterior tibial and dorsalis pedis arteries demonstrate triphasic waveforms. IMPRESSION: No flow limiting stenosis within the left lower extremity.
--- NOTE | 2024-01-24 18:34 | RAD REPORT ---
EXAM DESCRIPTION: US - Extremity Nonvascular Complete - 01/24/2024 6:20 pm CLINICAL HISTORY: ABSCESS COMPARISON: Extrem Venous W Compress Lew dated 01/06/2024; Lower Extremity Artery Uni Ltd dated 024; Extremity Venous Uni Ltd dated 01/24/2024 FINDINGS: Focused ultrasound of the left lower extremity at the patient's area of concern at the [facility]. A 2 cm x 0.6 cm subcutaneous fluid collection is present at the area of concern. This is just deep to the skin surface. IMPRESSION: 2 cm x 0.6 cm subcutaneous fluid collection at the area of concern concerning for a smal l abscess.
[2024-01-24] MEDS: NA CHLORIDE 0.9% 1,000 ML IV SCH (19:45)
[2024-01-24] MEDS: VANCOMYCIN 1.75 GM in NA CHLORIDE 0.9% 500 ML IVPB SCH (20:00)
[2024-01-24 20:03] VITALS: BMI 37.0
[2024-01-24] MEDS: INSULIN REGULAR (HUMAN) 100 UNIT/ML SQ SCH (20:47)
[2024-01-24] MEDS ORDERED: VANCOMYCIN 1.5 GM in NA CHLORIDE 0.9% 500 ML IVPB SCH (21:00)
[2024-01-24] MEDS: VANCOMYCIN 750 MG in NA CHLORIDE 0.9% 150 ML IVPB ONE (22:00)
[2024-01-24] MEDS: CEFEPIME 2 GM in NA CHLORIDE 0.9% 100 ML IV SCH (22:01)
[2024-01-24] MEDS: VANCOMYCIN 1 GM/VIAL ONE (22:38)
[2024-01-24] MEDS: NA CHLORIDE 0.9% 100 ML ONE (22:38)
[2024-01-25 03:27] LABS: Absolute Eosinophils 0.2 K/uL (0-0.5); Absolute Monocytes 0.4 K/uL (0.1-1.3); Absolute Neutrophil 2.3 K/uL (1.8-8.0); Basophils % 0.6 % (0-1.3); Eosinophils % 4.3 % (0-4.4); Hematocrit 28.4 % (39.6-49.0); Lymphocytes % 24.8 % (15.3-44.8); MCH 30.9 pg (27.0-35.0); MCHC 35.4 g/dL (32.0-36.0); MCV 87.3 fL (80-100); MPV 7.2 fL (7.6-11.3); Monocytes % 11.6 % (3.3-12.3); Neutrophils % 58.7 % (41.7-73.7); Nucleated Red Blood Cells % 0.1 % (0-0); Platelets 229 thou/uL (152-406); RBC Red Blood Cell Count 3.25 M/uL (4.33-5.43)
[2024-01-25 03:45] LABS: Magnesium 1.9 mg/dL (1.6-2.4)
--- NOTE | 2024-01-25 07:40 | P.PN ---
Subjective Date of Service: 01/25/24 68 yrs old Male with a past medical diabetes mellitus; Prostate Cancer; Hypertensive disorder presents with a left lower extremity posterior calf wound. He reports symptoms started about 1 month ago. Is progressively getting worse. Admitted with surgery to consult, IV vancomycin IV cefepime Pain control with as needed analgesics, no fever overnight N.p.o., for surgery to eval Diabetes type 2 with hyperglycemia, Lantus 25 daily added, not on Lantus at home, A1c ordered for a.m. - Physical Exam General: Alert, In no apparent distress, Oriented x3 HEENT: Atraumatic, Normocephalic Neck: Supple, 2+ carotid pulse no bruit Respiratory: Clear to auscultation bilaterally, Normal air movement Cardiovascular: No edema, Normal pulses Capillary refill: >2 Seconds Gastrointestinal: Normal bowel sounds, Soft and benign Musculoskeletal: No clubbing, No swelling Integumentary: Other (Left lower extremity posterior calf cellulitis, with wound.) Neurological: Normal speech, Normal strength at 5/5 x4 extr Review of Systems Per HPI Physical Examination - Vital Signs Temperature: 98.4 F Blood Pressure: 129/60 Pulse: 69 Respirations: 16 Pulse Ox (%): 96 - Studies Laboratory Data (last 24 hrs) 01/24/24 01/24/24 16:16 16:16 WBC 4.30 Hgb 11.1 L Hct 32.2 L Plt Count 266 Sodium 134 L Potassium 3.9 BUN 10 Creatinine 1.17 Glucose 310 H Total Bilirubin 0.9 AST 27 ALT 22 Alkaline Phosphatase 90 Assessment And Plan - Plan Assessment and Plan Cutaneous abscess of left lower limb Cellulitis of left lower limb Surgery to consult, n.p.o. after midnight, IV vancomycin, IV cefepime, As needed analgesics, antiemetics, e reports symptoms started about 1 month ago. Is progressively getting worse. He reports recent admission 3 weeks ago. Failed outpatient treatment antibiotics. He reports left lower extremity pain, swelling, drainage, with wound. ER evaluation BP 180 / 86; Pulse 99; Resp 18; Temp 98.2; Pulse Ox 97% ; Weight 101.15 kg; Height 5 cm10 ft. 5 in. ; Pain 5/10; treated with vancomycin, Zosyn, in the emergency room. Left lower extremity Doppler IMPRESSION: No flow limiting stenosis within the left lower extremity. Left lower extremity x-ray FINDINGS/IMPRESSION: No fracture of the tibia or fibula identified. Left knee arthroplasty with partially imaged hardware intact. Venous Doppler IMPRESSION: No DVT in the left lower extremity Wound care to eval N.p.o. for surgery to eval today Type 2 diabetes mellitus with hyperglycemia Sliding scale, Accu-Cheks, A1c, Normal saline, Lantus given 30 units x 1 in the ER. lantus added, not on home lantus Prostate Cancer Hypertensive unknown control Telemetry, Resume appropriate home meds Full code DVT SCDs, Lovenox Diet n.p.o. after midnight Disposition Home, uses a cane, family at bedside Discharge Plan: Home Critical Care: No Time Spent Managing PTS Care (In Minutes): 35
[2024-01-25] MEDS: ENOXAPARIN 40 MG/0.4 ML SQ SCH (08:58)
[2024-01-25] MEDS: CEFEPIME 2 GM in NA CHLORIDE 0.9% 100 ML IV SCH (08:59)
[2024-01-25] MEDS: INSULIN GLARGINE 100 UNIT/ML SQ SCH (09:00)
--- NOTE | 2024-01-25 12:28 | CON ---
Date of Consultation: 01/25/2024 Diagnosis: Cellulitis of the left leg and abscess. History Of Present Illness: This is the case of a 68-year-old patient with history of diabetes, admi tted to the hospital due to a left leg cellulitis, not responding to outpatient treatment and now dev eloped into an abscess. He was treated with some antibiotics at home. Yesterday, he was told that i f it gets worse to come to the ER. Last night, he showed in the ER with purulent discharge coming fr om the leg. Now the reason he is concerned is because he also has a prosthetic on that left knee and he was told that if he has an infection, he is to come here for the IV antibiotics. He thinks it wa s just an insect bite at one point in the lower mid leg and he started scratching and then after that it turned slowly into this over the time. He does not recall any other trauma. Past Medical History: Include prostate cancer, hypertension, diabetes. Medications: Include aspirin, metformin, Flomax, oxybutynin, Augmentin, [place], folic acid. Allergies: NONE. Social History: He does not smoke. He does not drink alcohol. Family History: Noncontributory. Physical Examination: Vital Signs: Reviewed. General: The patient is awake, alert, oriented x3. HEENT: Pupils are equal and reactive. Anicteric. Neck: Supple. Chest: Clear. Heart: S1, S2. Abdomen: Soft and depressible. Nontender, nondistended. Bowel sounds positive. Extremities: Good capillary refill. On the left posterior lower leg, patient has about a 5 x 5 cm a angel of cellulitis, induration, fluctuance, purulent discharge consistent with an abscess. Increased temperature and erythema in that region. Laboratory Data: Blood work shows a WBC count of 4.3, hemoglobin of 11.1, and platelets of 266 with an INR of 1.2 and sodium is 134, creatinine is 1.17. Extremity ultrasound shows about 2 cm fluid col lection consistent with an abscess on the posterior leg region, the area of concern. A tib-fib x-ray shows no fracture of the tibia or fibula identified. Venous Doppler shows no evidence of DVT. Assessment: This is a 68-year-old patient with left posterior calf abscess. We will do an incision and drainage and debridement with benefits, alternatives, and risks including, but not limited to, in fection, bleeding, damage to adjacent structures, anesthesia complication, nonhealing wound, ND, and even . He will require wound care. CARMEN/DIPIKA Voice ID: [id number] Report ID: [id number]
[2024-01-25] MEDS ORDERED: propofoL 200 MG/20 ML VIAL IV ONE (12:57)
[2024-01-25] MEDS ORDERED: MIDAZOLAM HCL 2 MG/2 ML INJ ONE (12:57)
[2024-01-25] MEDS ORDERED: LIDOCAINE 2% MPF 5 ML VIAL ONE (13:48)
[2024-01-25] MEDS: LIDOCAINE 1% MPF 5 ML VIAL ONE (14:00)
--- NOTE | 2024-01-25 14:15 | P.BOP ---
Preoperative diagnosis: cellulitis/abscess left leg Postoperative diagnosis: same Primary procedure: Incision, drainage and excisional subQ debridement of left leg abscess Secondary procedure: 4x4cm Estimated blood loss: <5cc Specimen: culture and necrotic tissue Findings: as above Anesthesia: MAC Complications: None Drain(s): Other (wet to dry) Transferred to: Recovery Room Condition: Good
[2024-01-25 14:25] VITALS: O2SAT 97
[2024-01-25] MEDS: HYDROCODONE/APAP 5/325 MG TAB PO PRN (15:55)
--- NOTE | 2024-01-25 16:28 | OP ---
Date of Procedure: 01/25/2024 Surgeon: Elfego Hatch MD Preoperative Diagnosis: Cellulitis and abscess and necrotic wound, left leg. Postoperative Diagnosis: Cellulitis and abscess and necrotic wound, left leg. Procedure: Incision and drainage and excisional subcutaneous debridement of left leg abscess necroti c wound about 4 x 4 cm. Estimated Blood Loss: Less than 5 cc. Specimen: Culture and necrotic tissue. Findings: Patient has multiple loculations and fluctuance on the abscess on the leg area. Does not p enetrate the muscle. It is in the subcutaneous tissue. Anesthesia: MAC plus local. Complications: None. Packing: Wet-to-dry. Indication: This is a case of a 68-year-old patient, multiple weeks of history of antibiotics, came to us with an abscess and cellulitis of the left leg. The patient was admitted to the hospital and a surgical consult was obtained for debridement and drainage. The benefits, alternatives, and risks o f that fully explained to the patient which include, but not limited to, infection, bleeding, damage to adjacent structures, anesthesia complication, nonhealing wound, RI, and even . He also under stands this may not relieve any symptoms. He might need more than one surgical intervention. He sig anca a consent. The same was explained to his daughter in Bruneian and [place]ese. They understand also he will require wound care. The area of concern was marked by me and the patient in the holding room . Description Of Procedure: Patient was brought to the operating room, placed in supine position. Ane sthesia was done without complication. A time-out was called. Left leg was prepped and draped in th e usual sterile fashion. After that, we injected local anesthetic, followed by debridement of that a angel with sharp instruments and also Bovie cauterizer. Cultures were obtained. Necrotic tissue was r emoved. This was done debridement all the way down to subcutaneous tissue. The muscle seems to be i ntact. The multiple loculations were explored and opened. The area was irrigated and then packed we t-to-dry dressing after hemostasis was obtained. The patient tolerated the procedure well. Patient sent to recovery in stable condition. Sponge counts and instrument counts were correct. CARMEN/DIPIKA Voice ID: [id number] Report ID: [id number]
[2024-01-25] MEDS: VANCOMYCIN 1.75 GM in NA CHLORIDE 0.9% 500 ML IVPB SCH (17:19)
--- NOTE | 2024-01-25 17:36 | RAD REPORT ---
EXAM DESCRIPTION: RAD - Chest Single View - 01/25/2024 5:26 pm CLINICAL HISTORY: Device placement PICC line placement . IMPRESSION: PICC line with its tip in the proximal superior vena cava
[2024-01-25] MEDS ORDERED: VANCOMYCIN 1.75 GM in NA CHLORIDE 0.9% 500 ML IVPB SCH (22:00)
[2024-01-26 05:19] LABS: Absolute Eosinophils 0.2 K/uL (0-0.5); Absolute Monocytes 0.5 K/uL (0.1-1.3); Absolute Neutrophil 2.2 K/uL (1.8-8.0); Basophils % 1.2 % (0-1.3); Eosinophils % 5.6 % (0-4.4); Hematocrit 29.4 % (39.6-49.0); Hemoglobin 10.5 g/dL (13.6-17.9); Lymphocytes % 25.6 % (15.3-44.8); MCH 31.2 pg (27.0-35.0); MCHC 35.8 g/dL (32.0-36.0); MCV 87.1 fL (80-100); MPV 6.6 fL (7.6-11.3); Monocytes % 12.1 % (3.3-12.3); Neutrophils % 55.5 % (41.7-73.7); Nucleated Red Blood Cells % 0.1 % (0-0); Platelets 237 thou/uL (152-406); RBC Red Blood Cell Count 3.38 M/uL (4.33-5.43); Red Cell Distribution Width 15.4 % (12.1-15.2)
[2024-01-26 05:26] LABS: Anion Gap 8.8 mEq/L (5.0-15.0); Magnesium 1.6 mg/dL (1.6-2.4); Potassium 3.8 mEq/L (3.5-5.1)
[2024-01-26] MEDS: POTASSIUM CL SA 10 MEQ TAB PO ONE (09:11)
[2024-01-26] MEDS: MAGNESIUM CHLORIDE 64 MG TAB PO SCH (09:11)
[2024-01-26] MEDS: ONDANSETRON 4 MG/2 ML VIAL IV ONE (10:35)
--- NOTE | 2024-01-26 11:39 | P.DS ---
Admission Date: 01/24/24 Discharge Date: 01/26/24 Reason for Admission: Cellulitis left lower extremity Consultations: Dr. Hatch - Problems (1) Abscess Current Visit: Yes Status: Acute (2) Left leg cellulitis Current Visit: No Status: Acute Brief History of Present Illness: 68 yrs old Male with a past medical diabetes mellitus; Prostate Cancer; Hypertensive disorder presents with a left lower extremity posterior calf wound. He reports symptoms started about 1 month ago. Is progressively getting worse. He reports recent admission 3 weeks ago. Failed outpatient treatment antibiotics. He reports left lower extremity pain, swelling, drainage, with wound. ER evaluation BP 180 / 86; Pulse 99; Resp 18; Temp 98.2; Pulse Ox 97% ; Weight 101.15 kg; Height 5' 5". Pain 5/10; treated with vancomycin, Zosyn, in the emergency room. Normal saline, Lantus given 30 units x 1. No reported feve r, chills, chest pain, shortness of breath. Plan to admit for Cutaneous abscess of left lower limb, Cellulitis of left lower limb, Type 2 diabetes mellitus with hyperglycemia. With surgery to consult. Left lower extremity Doppler IMPRESSION: No flow limiting stenosis within the left lower extremity. Left lower extremity x-ray FINDINGS/IMPRESSION: No fracture of the tibia or fibula identified. Left knee arthroplasty with partially imaged hardware intact. Venous Doppler IMPRESSION: No DVT in the left lower extremity Hospital Course: He did well over the course of the admission. Dr. Hatch performed an I&D on the abscess of the left lower calf. The area was packed with iodoform gauze, with wet-to-dry dressing in place. He will be discharged today post clearance by Dr. Hatch with home health for dressing changes daily. Doxycycline and Bactrim will continue. He should follow-up with Dr. Hatch in 1 week. <Maricel Bear - Last Filed: 01/26/24 11:46> Admission Date: 01/24/24 Discharge Date: 01/26/24 Hospital Course: Pt seen and examined. I agree with the note by the SUSTAINABILITY COMMUNICATOR. Will dc pt with Doxy and Bactrim. F/u with PCP and Gen surgeon in clinic. OK to discharge pt. <Abdoul Patel - Last Filed: 01/26/24 12:56> Disposition: DC HOME/HOME HEALTH CARE Discharge Condition: GOOD Vital Signs/Physical Exam: Temp Pulse Resp BP Pulse Ox 97.8 F 67 14 182/85 H 96 01/26/24 08:00 01/26/24 08:00 01/26/24 08:00 01/26/24 08:00 01/26/24 08:00 General: Alert, In no apparent distress, Oriented x3 HEENT: Atraumatic, Normocephalic Neck: Supple Respiratory: Normal air movement Cardiovascular: Normal pulses Capillary refill: <2 Seconds Gastrointestinal: Soft and benign Musculoskeletal: No clubbing, Other (left lower extremity with palpable distal pulses) Integumentary: Other (left calf with post surgical bandage, unwrapped, scant serous dc to 4X4, packing in place. minimal surrounding erythema, +2 distal pulses.) Neurological: Normal speech, Normal tone, Normal affect Lymphatics: No axilla or inguinal lymphadenopathy External genitalia: Deferred Rectal: Deferred Laboratory Data at Discharge: WBC 3.90 thou/uL (4.3-10.9) L 01/26/24 04:41 Hgb 10.5 g/dL (13.6-17.9) L 01/26/24 04:41 Hct 29.4 % (39.6-49.0) L 01/26/24 04:41 Plt Count 237 thou/uL (152-406) 01/26/24 04:41 PT 13.6 SECONDS (9.5-12.5) H 01/24/24 17:59 INR 1.24 01/24/24 17:59 Sodium 137 mEq/L (136-145) 01/26/24 04:41 Potassium 3.8 mEq/L (3.5-5.1) 01/26/24 04:41 BUN 12 mg/dL (7-18) 01/26/24 04:41 Creatinine 0.92 mg/dL (0.70-1.30) 01/26/24 04:41 Glucose 131 mg/dL (74-106) H 01/26/24 04:41 Phosphorus 3.2 mg/dL (2.5-4.9) 01/26/24 04:41 Magnesium 1.6 mg/dL (1.6-2.4) 01/26/24 04:41 Total Bilirubin 0.9 mg/dL (0.2-1.0) 01/24/24 16:16 AST 27 U/L (15-37) 01/24/24 16:16 ALT 22 U/L (16-61) 01/24/24 16:16 Alkaline Phosphatase 90 U/L (45-117) 01/24/24 16:16 <Bear,Maricel Gage - Last Filed: 01/26/24 11:46> Vital Signs/Physical Exam: Temp Pulse Resp BP Pulse Ox 97.8 F 67 14 182/85 H 96 01/26/24 08:00 01/26/24 08:00 01/26/24 08:00 01/26/24 08:00 01/26/24 08:00 Laboratory Data at Discharge: WBC 3.90 thou/uL (4.3-10.9) L 01/26/24 04:41 Hgb 10.5 g/dL (13.6-17.9) L 01/26/24 04:41 Hct 29.4 % (39.6-49.0) L 01/26/24 04:41 Plt Count 237 thou/uL (152-406) 01/26/24 04:41 PT 13.6 SECONDS (9.5-12.5) H 01/24/24 17:59 INR 1.24 01/24/24 17:59 Sodium 137 mEq/L (136-145) 01/26/24 04:41 Potassium 3.8 mEq/L (3.5-5.1) 01/26/24 04:41 BUN 12 mg/dL (7-18) 01/26/24 04:41 Creatinine 0.92 mg/dL (0.70-1.30) 01/26/24 04:41 Glucose 131 mg/dL (74-106) H 01/26/24 04:41 Phosphorus 3.2 mg/dL (2.5-4.9) 01/26/24 04:41 Magnesium 1.6 mg/dL (1.6-2.4) 01/26/24 04:41 Total Bilirubin 0.9 mg/dL (0.2-1.0) 01/24/24 16:16 AST 27 U/L (15-37) 01/24/24 16:16 ALT 22 U/L (16-61) 01/24/24 16:16 Alkaline Phosphatase 90 U/L (45-117) 01/24/24 16:16 <Tiff Patelleatha Robbins - Last Filed: 01/26/24 12:56> Diet: ADA Activity: Fall precautions <Maricel Bear - Last Filed: 01/26/24 11:46> <Damian Patelmarichuylubna Itzel - Last Filed: 01/26/24 12:56> Home Medications: Aspirin [Adult Low Dose Aspirin EC] 81 mg PO DAILY 01/07/24 Atorvastatin Calcium 20 mg PO DAILY 01/07/24 Folic Acid 1 mg PO DAILY 01/07/24 Gabapentin 300 mg PO DAILY 01/07/24 Lisinopril [Zestril] 5 mg PO DAILY 01/07/24 Metformin ER [Glucophage ER*] 1,000 mg PO BID 01/07/24 Omeprazole 20 mg PO DAILY 01/07/24 Tamsulosin [Flomax*] 0.4 mg PO DAILY 01/07/24 oxyBUTYnin chloride [Oxybutynin Chloride] 5 mg PO DAILY 01/07/24 Hydrocodone 7.5/APAP 325 [[place] 7.5/325 mg*] 1 tab PO Q6HP PRN #30 tab 01/26/24 Minocycline HCl 100 mg PO BID #20 cap 01/26/24 Sulfamethoxazole/Trimethoprim [Bactrim Ds Tablet] 1 each PO BID #20 tab 01/26/24 New Medications: Sulfamethoxazole/Trimethoprim [Bactrim Ds Tablet] 1 each PO BID #20 tab Minocycline HCl 100 mg PO BID #20 cap Hydrocodone 7.5/APAP 325 [[place] 7.5/325 mg*] 1 tab PO Q6HP PRN #30 tab PRN Reason: Pain Scale 8-10 (Severe) Physician Discharge Instructions: -DC IV and DC home - Home health for dressing changes x 1 week -Follow-up with PCP in 1 to 2 weeks -Follow-up with Surgery in 1 to 2 weeks -Please call Dr. Prajapati at [phone] if any questions regarding hospital stay -Please call nursing station at [phone] if any nursing or medication questions -Return to the emergency room if symptoms worsen Followup: Brielle Hernandez NP [Primary Care Provider] - 1-2 Weeks Elfego Hatch MD [ACTIVE - CAN ADMIT] - 1-2 Weeks
[2024-01-26] MEDS: DOXYCYCLINE 100 MG CAP PO SCH (12:00)
--- NOTE | 2024-01-26 14:10 | EKG ---
Test Date: 2024-01-24 Test Time: 18:22:04 Hay Sorter: REGIS MEASUREMENT RESULTS: Intervals: Rate: 81 AL: 220 QRSD: 104 QT: 384 QTc: 446 [place]: P: 35 AL: 220 QRS: -15 T: 11 INTERPRETIVE STATEMENTS: Sinus rhythm with 1st degree AV block Otherwise normal ECG Compared to ECG 01/06/2024 19:30:02 First degree AV block now present T-wave abnormality no longer present Prolonged QT interval no longer present Electronically Signed On 01-26-24 14:05:33 CDT by Rikki Moreno
[2024-01-26 14:11] VITALS: BP 149/72; TEMP 97
== END 2024-01-26 13:22 | disposition home health service (06) | DRG 264 ==
LOC: ER 15:28 → ERHOLD 17:34 → 2ND 18:01
PROVIDERS: ADMIT Hospitalist; ATTEND Hospitalist
PROC: 02HV33Z Insertion of Infusion Device into Superior Vena Cava, Percutaneous Approach (ICD-10-PCS; 2024-01-25)
PROC: 0JBP0ZZ Excision of Left Lower Leg Subcutaneous Tissue and Fascia, Open Approach (ICD-10-PCS; principal; 2024-01-25 12:30)
DX: E11.52 Type 2 diabetes mellitus with diabetic peripheral angiopathy with gangrene (principal); L02.416 Cutaneous abscess of left lower limb; L03.116 Cellulitis of left lower limb; E11.65 Type 2 diabetes mellitus with hyperglycemia; I10 Essential (primary) hypertension; Z85.46 Personal history of malignant neoplasm of prostate; Z79.82 Long term (current) use of aspirin; Z79.84 Long term (current) use of oral hypoglycemic drugs; Z96.652 Presence of left artificial knee joint; Z79.899 Other long term (current) drug therapy
CPT/HCPCS: 36415; 71045; 76881; 80048; 80053; 82947; 83036; 83735; 84100; 85025; 85610; 87070; 87075; 87077; 87186; 87205; 88304; 93005; 93925; 93926; 93971; 96361; 96365; 96367; 96372; 96375; 99285; J0692; J1650; J2001; J2250; J2405; J2543; J2704; J7030; J7040; J7050